=== PATIENT | female | born 1995 | race Caucasian/White ===

== ENCOUNTER 2020-12-21 18:15 | Emergency (ER) | payer OTHER, SELFPAY ==
--- NOTE | ~2020-12-21 | XR_ITS ---
EXAMINATION: XR CHEST CLINICAL INFORMATION: Tachycardia COMPARISON: None TECHNIQUE: Frontal view of the chest was obtained. FINDINGS: Lungs are mildly hypoinflated and grossly clear. Trachea is midline in position. No interstitial disease, consolidation or mass. No pulmonary edema, pleural effusion or pneumothorax. Cardiac silhouette and pulmonary vessels are normal in size. The mediastinum and giacomo have normal contour. The visualized bones, and upper abdomen, are unremarkable. XR/XR chest 1V IMPRESSION: No acute cardiopulmonary abnormality.
[2020-12-21 18:37] VITALS: BP 193/127; PULSE 101; RESP 18; TEMP 36.8; O2SAT 99; BMI 50.5
--- NOTE | 2020-12-21 18:43 | ECG_ITS ---
Test Reason : HYPERTENSION Blood Pressure : / mmHG Vent. Rate : 102 BPM Atrial Rate : 102 BPM P-R Int : 134 ms QRS Dur : 088 ms QT Int : 338 ms P-R-T Axes : 032 050 -02 degrees QTc Int : 440 ms Sinus tachycardia Nonspecific T wave abnormality Abnormal ECG No previous ECGs available Referred By: Generic ED Physician Electronically Signed By:ABNER LOPEZ MD
[2020-12-21 19:01] LABS: Basophils Percent Auto 0.3 % (0-2); Eosinophils Absolute Auto 0.1 X10*3/uL (0.0-0.4); Eosinophils Percent Auto 1.1 % (0-4); Hematocrit 38.9 % (37-47); Hemoglobin 13.4 g/dl (12.0-16.0); Imm Gran Abs Auto 0.02 X10*3/uL (0.00-0.03); Imm Gran Pct Auto 0.2 % (0.0-0.4); Lymphocytes Absolute Auto 2.5 X10*3/uL (1.2-4.9); Lymphocytes Percent Auto 25.5 % (20-40); MANUAL DIFF FLAG NO; Mean Corpuscular HGB Conc 34.4 g/dl (31.0-35.0); Mean Corpuscular Hemoglobin 29.2 pg (27.0-33.0); Mean Corpuscular Volume 84.7 fL (80-98); Mean Platelet Volume 10.2 fL (9.4-12.3); Monocytes Absolute Auto 0.5 X10*3/uL (0.1-1.2); Monocytes Percent Auto 4.5 % (2-11); Neutrophils Absolute Auto 6.8 X10*3/uL (2.0-8.3); Neutrophils Percent Auto 68.4 % (45-73); Platelet Count 273 X10*3/uL (160-400); Red Blood Count 4.59 X10*6/uL (4.20-5.50); Red Cell Distribution Width 13.2 % (11.0-16.0); White Blood Count 9.9 X10*3/uL (4.8-10.8)
[2020-12-21 19:21] LABS: Anion Gap 13 (12-20); Blood Urea Nitrogen 11 mg/dL (9-16); Calcium 9.4 mg/dL (8.4-10.2); Carbon Dioxide 24 mmol/L (22-29); Chloride 106 mmol/L (96-108); Estimated Glomerular Filt Rate > 60; Glucose Random 91 mg/dL (60-115); Potassium 3.9 mmol/L (3.3-5.1); Sodium 139 mmol/L (135-145)
[2020-12-21 19:28] LABS: Troponin-I High Sensitivity < 3.5 ng/L (<3.5-17.0)
--- NOTE | 2020-12-21 22:47 | ED.GENADULT ---
HPI - General Adult General Chief complaint: General Medical Stated complaint: High BP, PT came with EKG results Time Seen by Provider: 12/21/20 22:30 Source: patient Mode of arrival: ambulatory History of Present Illness HPI narrative: 25-year-old female with no significant past medical history presenting to the ED complaining of tachycardia and e;evated blood pressure S/P feeling palpitations work this afternoon. Reports started having palpitations and HR was 126, and BP was 180s/120s. Patient denies headache, lightheadedness, dizziness, CP, SOB, abdominal pain, nausea, vomiting, weakness, numbness, tingling, recent travel, history of blood clots, LE edema, illicit drug use, cigarette smoking, oral OCPs Onset (ago): hour(s) Related Data Previous Rx's Medication Instructions Recorded amlodipine 10 mg tablet 10 mg PO DAILY #14 tab 12/22/20 Allergies Allergy/AdvReac Type Severity Reaction Status Date / Time No Known Allergies Allergy Verified 12/21/20 18:36 Review of Systems Review of Systems: Constitutional: No Fever, No Chills, No Fatigue, No Malaise ENT/Mouth: No Ear Pain, No Nasal Congestion, No sore throat, No Rhinorrhea Eyes: No Eye Pain, No Swelling, No Redness, No Vision Changes Cardiovascular: No Chest Pain, No SOB, No Dyspnea on Exertion, No Edema, + Palpitations Respiratory: No Cough, No Smoke Exposure, No Dyspnea Gastrointestinal: No Nausea, No Vomiting, No Diarrhea, No Constipation, No Abdominal pain Genitourinary: No Dysuria, No Urinary Frequency, No Hematuria, No Flank Pain, No Urinary Flow Changes Musculoskeletal: No joint pain, No Myalgias, No Joint Swelling Skin: No Skin Lesions, No rash Neuro: No Weakness, No Numbness, No Paresthesias, No Dizziness, No Headache Yes all other systems are reviewed and are negative [facility] Past Medical History Attestation statement: The following information was validated with the patient. Medical History (Updated 12/22/20 @ 00:32 by JACOBO Maldonado) No pertinent past medical history Social History Social History Advance Directives: No Patient : No Physical Exam Vital Signs: Vital Signs: Last Vital Signs Temp 98.3 F 12/21/20 18:37 Pulse 95 12/21/20 23:19 Resp 24 H 12/21/20 23:19 BP 154/103 H 12/22/20 00:00 Pulse Ox 99 12/21/20 23:19 Body Mass Index 50.5 Const: General: cooperative, healthy appearing and no acute distress Orientation/consciousness: patient oriented x3 Limitations: no limitations HENMT: Head: Yes normal to inspection and Yes atraumatic Ears: hearing grossly normal bilaterally General nose exam: Normal external nose present Face and sinus: Yes normal facial exam Eyes: General: appearance normal, both eyes and all related structures Pupils: Equal, round and reactive pupils present EOM: EOMs intact bilaterally Neck: Neck: Yes normal visual inspection and Yes no meningeal signs Resp: Effort & Inspection: normal respiratory effort Auscultation: clear to auscultation bilaterally, no rales, no rhonchi and no wheezes Cardio: Rate: regular rate and tachycardic Heart sounds: S1 normal heart sound present and S2 normal heart sound present GI: Inspection: Yes normal to inspection Palpation (GI): Soft to palpation, nontender, no guarding and not rigid Skin: Rashes: no rashes Wounds: no wounds Neuro: General: patient oriented x3, tone normal, moves all extremities and no meningeal signs Cranial nerves: Yes Equal, round and reactive pupils present Gait exam (Neuro): Normal gait present Extrem: General: Yes normal to inspection, Yes no pedal edema and Yes no calf tenderness Course Course Course Narrative: -no leukocytosis. D-dimer negative. Labs otherwise unremarkable including TSH and troponin XR chest 1V IMPRESSION: No acute cardiopulmonary abnormality. ? -0031--patient's blood pressure improved to 154/103 after 10 mg of p.o. Amlodipine. Will DC home with 2 weeks worth of this dose and close PCP follow-up in the next 24-48 hours Medical Decision Making [facility] Narrative Medical decision making narrative: 25-year-old female with no significant past medical history presenting to the ED complaining of tachycardia and e;evated blood pressure S/P feeling palpitations work this afternoon. On exam hypertensive, tachycardic, NAD, nontoxic appearing. Concern for undiagnosed hypertension vs metabolic or infectious etiology vs ?PE. Low concern for hypertensive urgency/emergency as patient is asymptomatic in this regard Plan: EKG, labs, CXR, UA, PO Amlodipine, reassess Lab Data Result diagrams: 12/21/20 18:54 12/21/20 18:54 Labs: Lab Results 12/21/20 12/21/20 12/21/20 Range/Units 18:54 18:54 18:54 WBC 9.9 (4.8-10.8) X10*3/uL RBC 4.59 (4.20-5.50) X10*6/uL Hgb 13.4 (12.0-16.0) g/dl Hct 38.9 (37-47) % MCV 84.7 (80-98) fL MCH 29.2 (27.0-33.0) pg MCHC 34.4 (31.0-35.0) g/dl RDW 13.2 (11.0-16.0) % Plt Count 273 (160-400) X10*3/uL MPV 10.2 (9.4-12.3) fL Immature Gran % (Auto) 0.2 (0.0-0.4) % Neut % (Auto) 68.4 (45-73) % Lymph % (Auto) 25.5 (20-40) % [place] % (Auto) 4.5 (2-11) % Eos % (Auto) 1.1 (0-4) % Baso % (Auto) 0.3 (0-2) % Lymph # (Auto) 2.5 (1.2-4.9) X10*3/uL [place] # (Auto) 0.5 (0.1-1.2) X10*3/uL Eos # (Auto) 0.1 (0.0-0.4) X10*3/uL Baso # (Auto) 0.0 (0.0-0.2) X10*3/uL Abs Immat Gran (auto) 0.02 (0.00-0.03) X10*3/uL Absolute Neuts (auto) 6.8 (2.0-8.3) X10*3/uL Absolute Nucleated RBC 0.000 (0.0-0.012) X10*3/uL Nucleated RBC % (auto) 0.0 (0.0-0.2) /100WBC D-Dimer NG/ML Sodium 139 (135-145) mmol/L Potassium 3.9 (3.3-5.1) mmol/L Chloride 106 (96-108) mmol/L Carbon Dioxide 24 (22-29) mmol/L Anion Gap 13 (12-20) BUN 11 (9-16) mg/dL Creatinine 0.88 (0.5-1.4) mg/dL Estim Creat Clear Calc 126.0 Estimated GFR > 60 Random Glucose 91 (60-115) mg/dL Calcium 9.4 (8.4-10.2) mg/dL Magnesium 2.1 (1.6-2.6) mg/dL Total Bilirubin 0.2 (0.0-1.0) mg/dL Direct Bilirubin 0.2 (0.0-0.5) mg/dL AST 17 (5-31) U/L ALT 20 (0-31) U/L Alkaline Phosphatase 58 (39-117) U/L Troponin I High Sens < 3.5 (<3.5-17.0) ng/L Total Protein 7.9 (6.5-8.0) g/dL Albumin 4.5 (3.5-5.0) g/dL TSH 2.07 (0.32-4.0) uIU/mL 12/21/20 Range/Units 23:19 WBC (4.8-10.8) X10*3/uL RBC (4.20-5.50) X10*6/uL Hgb (12.0-16.0) g/dl Hct (37-47) % MCV (80-98) fL MCH (27.0-33.0) pg MCHC (31.0-35.0) g/dl RDW (11.0-16.0) % Plt Count (160-400) X10*3/uL MPV (9.4-12.3) fL Immature Gran % (Auto) (0.0-0.4) % Neut % (Auto) (45-73) % Lymph % (Auto) (20-40) % [place] % (Auto) (2-11) % Eos % (Auto) (0-4) % Baso % (Auto) (0-2) % Lymph # (Auto) (1.2-4.9) X10*3/uL [place] # (Auto) (0.1-1.2) X10*3/uL Eos # (Auto) (0.0-0.4) X10*3/uL Baso # (Auto) (0.0-0.2) X10*3/uL Abs Immat Gran (auto) (0.00-0.03) X10*3/uL Absolute Neuts (auto) (2.0-8.3) X10*3/uL Absolute Nucleated RBC (0.0-0.012) X10*3/uL Nucleated RBC % (auto) (0.0-0.2) /100WBC D-Dimer < 200 NG/ML Sodium (135-145) mmol/L Potassium (3.3-5.1) mmol/L Chloride (96-108) mmol/L Carbon Dioxide (22-29) mmol/L Anion Gap (12-20) BUN (9-16) mg/dL Creatinine (0.5-1.4) mg/dL Estim Creat Clear Calc Estimated GFR Random Glucose (60-115) mg/dL Calcium (8.4-10.2) mg/dL Magnesium (1.6-2.6) mg/dL Total Bilirubin (0.0-1.0) mg/dL Direct Bilirubin (0.0-0.5) mg/dL AST (5-31) U/L ALT (0-31) U/L Alkaline Phosphatase (39-117) U/L Troponin I High Sens (<3.5-17.0) ng/L Total Protein (6.5-8.0) g/dL Albumin (3.5-5.0) g/dL TSH (0.32-4.0) uIU/mL ECG Data Attestation: I personally reviewed and interpreted this ECG as follows: Prior ECG tracings: not available for review Interpretation: EKG sinus tachycardia rate of 102 WI interval 134 QTC 440 T-wave inversions in lead 3 no STEMI Discharge Plan Discharge Clinical Impression: Hypertension Qualifiers: Hypertension type: unspecified Qualified Code(s): I10 - Essential (primary) hypertension Patient Disposition: Home, Self-Care Instructions: Hypertension (ED), DASH Eating Plan (ED) Additional Instructions: Your blood work was reassuring today in the ED Your x-ray was negative Your blood pressure was extremely elevated as well as your heart rate This is dangerous Similar pain is in antihypertensive/blood pressure medication, take as prescribed It is important for you to follow-up with a primary care doctor for repeat blood pressure testing/monitoring and 24-48 hours Having elevated blood pressure on treated with you at high risk for stroke and heart attacks If her symptoms persist or worsen, he develops chest pain, shortness breath, headache, lightheadedness or dizziness return to the ED immediately Prescriptions: New amlodipine 10 mg tablet 10 mg PO DAILY Qty: 14 RF: 0 Referrals: Physician,Unknown J [Primary Care Provider] - 2 days (For blood pressure recheck)
[2020-12-21 23:05] LABS: Alanine Aminotransferase 20 U/L (0-31); Albumin Level 4.5 g/dL (3.5-5.0); Alkaline Phosphatase 58 U/L (39-117); Aspartate Amino Transferase 17 U/L (5-31); Bilirubin Direct 0.2 mg/dL (0.0-0.5); Bilirubin Total 0.2 mg/dL (0.0-1.0); Magnesium 2.1 mg/dL (1.6-2.6); Total Protein 7.9 g/dL (6.5-8.0)
[2020-12-21 23:19] VITALS: BP 172/106; PULSE 95; RESP 24; O2SAT 99
[2020-12-21] MEDS: amLODIPine Besylate 10 MG TABLET PO (23:21)
[2020-12-21 23:30] LABS: TSH reflex Free T4 2.07 uIU/mL (0.32-4.0)
[2020-12-21 23:34] LABS: D Dimer < 200 NG/ML
[2020-12-22] VITALS: BP 154/103
== END 2020-12-22 01:18 | disposition home or self-care (01) ==
PROVIDERS: Physician Assistant; Emergency Provider Emergency Medicine Emergency Medical Services
DX: R00.0 Tachycardia, unspecified (principal); R00.2 Palpitations; I10 Essential (primary) hypertension; Z79.899 Other long term (current) drug therapy
CPT/HCPCS: 36415; 71045; 80048; 80076; 83735; 84443; 84484; 85025; 85379; 93005; 99284

== ENCOUNTER 2021-04-28 07:59 | Outpatient (REF) | payer OTHER, SELFPAY ==
[2021-04-28 11:54] LABS: Anion Gap 12 (12-20); Blood Urea Nitrogen 7 mg/dL (9-16); Calcium 9.4 mg/dL (8.4-10.2); Carbon Dioxide 27 mmol/L (22-29); Chloride 104 mmol/L (96-108); Cholesterol 185 mg/dL; Estimated Glomerular Filt Rate > 60; Glucose Fasting 91 mg/dL (60-99); HDL Cholesterol 43 mg/dL; LDL Cholesterol Calculated 124 mg/dl; Potassium 4.3 mmol/L (3.3-5.1); Sodium 139 mmol/L (135-145); Triglycerides 94 mg/dL
[2021-04-28 11:58] LABS: Vitamin D 25-OH Total 13.5 ng/mL (>30)
== END 2021-04-28 08:00 | disposition home or self-care (01) ==
LOC: HO.HMGCLDS 07:59
PROVIDERS: PCP Internal Medicine; Visit Provider Internal Medicine
DX: I10 Essential (primary) hypertension (principal)
CPT/HCPCS: 36415; 80048; 80061; 82306

== ENCOUNTER 2023-05-05 11:29 | Outpatient (REF) | payer OTHER, SELFPAY ==
[2023-05-05 14:08] LABS: Alanine Aminotransferase 7 U/L (0-31); Anion Gap 13 (12-20); Aspartate Amino Transferase 11 U/L (5-31); Blood Urea Nitrogen 13 mg/dL (9-16); Calcium 9.4 mg/dL (8.4-10.2); Carbon Dioxide 26 mmol/L (22-29); Chloride 105 mmol/L (96-108); Cholesterol 189 mg/dL (<200); Estimated Glomerular Filt Rate > 60; Glucose Fasting 83 mg/dL (60-99); HDL Cholesterol 62 mg/dL (>40); LDL Cholesterol Calculated 119 mg/dL (<100); Potassium 4.2 mmol/L (3.3-5.1); Sodium 140 mmol/L (135-145); Triglycerides 44 mg/dL (<150)
[2023-05-05 14:26] LABS: Vitamin D 25-OH Total 81.8 ng/mL (>30)
== END 2023-05-05 11:30 | disposition home or self-care (01) ==
LOC: HO.HMGCLDS 11:29
PROVIDERS: PCP Internal Medicine; Visit Provider Internal Medicine
DX: Z00.01 Encounter for general adult medical examination with abnormal findings (principal); E66.9 Obesity, unspecified; E55.9 Vitamin D deficiency, unspecified; I10 Essential (primary) hypertension
CPT/HCPCS: 36415; 80048; 80061; 82306; 84450; 84460

== ENCOUNTER 2023-05-16 10:47 | Outpatient (AMB) | payer OTHER, MEDICAID, SELFPAY ==
--- NOTE | 2023-05-16 11:35 | A.OFFPC_ITS ---
Vital Signs 05/16/23 11:41 Height 5 ft 3 in Weight 163 lb BMI 28.9 BP 118/78 Blood Pressure Location Lt brachial Position Sitting Pulse 91 Pulse Source Pulse Oximeter Pulse Oximetry (%) 98 Oxygen Delivery Method Room Air Intake Visit Reasons: Annual PE Intake Note: Pt is here today for her Annual Physical. Hasn't had a Pap smear Allergies No Known Allergies Allergy (Verified 05/16/23 12:04) Medication List - Last Reconciled 05/16/23 by Anisha Estevez MD amlodipine 5 mg PO DAILY lisinopril 5 mg PO DAILY Tobacco use date assessed: 05/16/23 Dental Screening Dental Screen Date: 05/16/23 Did you have a dental visit in the last 12 months?: Yes Did you have a dental problem in the last 6 months where you did not have access to dental care?: No Was dental information given to patient?: Patient has dentist HPI Annual PE HPI Details 28-year-old lady here today for physical exam. She has obesity, has hypertension currently stable and controlled on amlodipine and lisinopril has been feeling well, with no complaints at present time, has started a new regimen of exercise, and has been trying to adhere to healthy eating habits. Patient declines getting cervical cancer screening or pelvic exam on this visit. [facility] Medical History (Updated 05/17/23 @ 01:17 by Anisha Estevez MD) Anxiety and depression Essential hypertension Surgical History (Updated 05/16/23 @ 12:07 by Anisha Estevez MD) No pertinent past surgical history Family History Father Substance use disorder Mental health disorder Myocardial infarction, Onset Age: 59 Mother Diabetes mellitus Rheumatoid arthritis Mental health disorder Sister Mental health disorder Maternal Grandmother No problems noted. Social History Housing: Apartment Patient Tobacco Use Status: Never used Tobacco e-Cigarette/Vaping Use: Never Used service: No Current occupational status: employed Cognitive needs: No Hearing needs: No Vision needs: No Questionnaire PHQ-9 Over the last 2 weeks, how often have you been bothered by any of the following problems? 1. Little interest or pleasure in doing things: not at all 2. Feeling down, depressed, or hopeless: not at all 3. Trouble falling or staying asleep, or sleeping too much: not at all 4. Feeling tired or having little energy: not at all 5. Poor appetite or overeating: not at all 6. Feeling bad about yourself - or that you are a failure or have let yourself or your family down: not at all 7. Trouble concentrating on things, such as reading the newspaper or watching television: not at all 8. Moving or speaking so slowly that other people could have noticed. Or the opposite - being so fidgety or restless that you have been moving around a lot more than usual: not at all 9. Thoughts that you would be better off or of hurting yourself in some way: not at all Total score: 0 Depression Screening Interpretation: Negative Depression Screening Done: Yes 60693 - PHQ-9 Billing: Yes Source: Developed by Drs. Tyson Bacon, Latrice Ivan, David Calle and colleagues, with an educational diane from [employer]. Thrive Questionnaire Date Thrive assessed: 05/16/23 I am a: Patient What is your living situation today?: I have a steady place to live Within the past 12 months, did the food you bought not last and you didn't have the money to get more?: Never true Within the past 12 months, did you worry whether your food would run out before you got money to buy more?: Never true Do you have trouble paying for medicines?: No Do you have trouble getting transportation to medical appointments?: No Do you have trouble paying your heating and electricity bill?: No Do you have trouble taking care of your child, family member or friend?: No Do you have trouble with day-to-day activities such as bathing, preparing meals, shopping, managing finances, etc.?: No Are you currently unemployed and looking for a job?: No Are you interested in more education?: No Please select the resources that you would like help with: None THRIVE Score: 0 AUDIT C Alcohol Use Questionnaire (AUDIT-C) 1. How often do you have a drink containing alcohol?: Never 3. How often do you have six or more drinks on one occasion?: Never Total Score: 0 Score Reviewed/Action Taken: Yes FLORENCIO-7 AMB Questionnaire FLORENCIO-7 Date FLORENCIO - 7 assessed: 05/16/23 Feeling nervous, anxious, or on edge: 1 = Several days Not being able to stop or control worryin = Not at all Worrying too much about different things: 1 = Several days Trouble relaxin = Not at all Being so restless that it is hard to sit still: 0 = Not at all Becoming easily annoyed or irritable: 0 = Not at all Feeling afraid as if something awful might happen: 0 = Not at all Total FLORENCIO-7 score (0-4 normal; 5-9 mild; 10-14 moderate; 15-21 severe): 2 Source: Developed by Drs. Tyson Bacon, Latrice Ivan, David Calle and colleagues, with an educational diane from [employer]. FLORENCIO-7 Assessment Billing FLORENCIO-7 Assessment Tool: FLORENCIO-7 Assessment 86296 Review of Systems Const Denies headache(s) and Denies weakness Eyes Denies change in vision ENT Denies dizziness and Denies headache(s) Card Denies chest pain, Denies lightheadedness and Denies dyspnea Resp Denies chest congestion, Denies cough and Denies dyspnea GI Denies abdominal pain, Denies change in bowel habits and Denies heartburn Reports no additional complaints Musc Reports no additional complaints Skin/Breast Denies lesions and Denies rash Neuro Denies dizziness, Denies headache(s) and Denies weakness Psych Reports no additional complaints Endo Reports no additional complaints Andrea/Lymph Reports no additional complaints Aller/Immun Reports no additional complaints Physical exam (Primary Care) Vital Signs: Last Vital Signs Pulse 91 05/16/23 11:41 BP 118/78 05/16/23 11:41 Pulse Ox 98 05/16/23 11:41 Oxygen Delivery Method Room Air 05/16/23 11:41 BMI result Body Mass Index 28.9 BMI Assessment/Plan discussion: High BMI High, discussed plan: weight reduction, dietary and physical activity Tobacco/Smoking Status: Tobacco use Status Tobacco use date assessed 05/16/23 05/16/23 11:43 Patient Tobacco Use Status Never used Tobacco 05/16/23 11:38 e-Cigarette/Vaping Use Never Used 05/16/23 11:38 Depression Screening Interpretation: Negative Thrive Assessment: Date of Thrive Assessment Date Thrive assessed 05/12/22 05/16/23 11:38 Const Other: Alert oriented x3, no acute cardio respiratory distress, ambulatory normal gait Orientation/consciousness: patient oriented x3 HENMT Face and sinus: Yes face symmetric Mouth: Normal oral and palatal mucosa present, oropharynx normal and moist mucous membranes Neck Other: Supple, no lymphadenopathy, thyroid gland nonpalpable Resp Auscultation: clear to auscultation bilaterally Cardio Other: S1-S2 present regular rate and rhythm, no murmurs GI Other: Normal bowel sounds, soft, nontender, with no mass palpated Other: not done referred to OB for her initial pap /pelvic exam General: Yes no CVA tenderness Back/Spine/Pelvis Back: no CVA tenderness and No back tenderness Skin General skin exam: no rashes or lesions noted Neuro General: patient oriented x3, gait normal, moves all extremities, Normal light touch and pain sensation, no focal motor deficits and CN's II-XI intact bilaterally Extrem General: Yes full ROM, Yes no joint enlargement, Yes no clubbing, cyanosis or edema, Yes no calf tenderness and Yes normal gait Psych Appearance: grossly normal and well kempt Mental Status: mental status grossly normal Speech and movement: Normal speech and movement present Affect: normal affect Attitude: cooperative Thought process: Normal thought process present Results Reviewed Results Reviewed: Name: Tonya Franco Age/Sex: 28/F : 1995 Unit#: [id number] Attend Dr: nAisha Estevez MD Re05/05/23 Status: DEP REF Location: [facility] Disch: SPEC : [id number] ROBYN: 05/05/23 STATUS: COMP REQ : [id number] RECD: 05/05/[address]: Anisha Estevez MD COMP: 05/05/23-142 ENTERED: 05/05/23-[address]: ORDERED: Met Prof Fast, AST, ALT, Lipid Panel, Vitamin D 25-OH Test Result Flag Reference Sodium 140 135-145 mmol/L Potassium 4.2 3.3-5.1 mmol/L CL 105 96-108 mmol/L CO2 26 22-29 mmol/L Gap 13 12-20 BUN 13 9-16 mg/dL Creat 0.80 0.5-1.4 mg/dL EGFR > 60 NOTE: For -Citizen Of [place] individuals, multiply the result by 1.210. Chronic Kidney Disease: Estimated GFR < 60 mL/min/1.73m2 Severe Kidney Disease: Estimated GFR < 15 mL/min/1.73m2 FBS 83 60-99 mg/dL CA 9.4 8.4-10.2 mg/dL AST (GOT) 11 5-31 U/L ALT (GPT) 7 0-31 U/L Triglyceride 44 <150 mg/dL Desirable Triglyceride: less than 150 mg/dL Borderline High Triglyceride 150-199 mg/dL High Triglyceride: 200-499 mg/dL Very High Triglyceride: greater than or equal to 5OO mg/dL Cholesterol 189 <200 mg/dL Desirable Cholesterol: less than 200 mg/dL Borderline High Cholesterol: 200-239 mg/dL High Cholesterol: greater than 239 mg/dL LDL Calculated 119 H <100 mg/dL Desirable LDL: less than 100 mg/dL Near Optimal/Above Optimal LDL: 110-129 mg/dL Borderline High LDL: 130-159 mg/dL High LDL: 160-189 mg/dL Very High LDL: greater than or equal to 190 mg/dL HDL 62 >40 mg/dL Desirable HDL: greater than 40 mg/dL Note: This HDL assay may give artificially low results in patients with liver disease. Vit D 25-OH Tot 81.8 >30 ng/mL Health Based Reference Values* < 20 ng/mL Deficient 20-30 ng/mL Insufficient > 30 ng/mL Sufficient Assessment and Plan Assessment & Plan (1) Annual visit for general adult medical examination with abnormal findings: Code(s): Z00.01 - Encounter for general adult medical examination with abnormal findings Plan: Reviewed recent fasting lab results with patient Recommended dental visit every 6 months and regular eye exams, at least every 2 years. Take adequate calcium in diet and vitamin-D 3 at 2000 IU per cap once a day, in addition to weight- bearing exercises to help maintain good muscle tone and weight control. Instructed to do self-breast exam, and recommended to get yearly mammogram, starting at age 40. Up-to-date with all her vaccines, patient states that she had received her tetanus shot less than 10 years ago. Advised to get her cervical cancer screening and pelvic exam done patient states that she only own appointment when ready (2) Essential hypertension: Code(s): I10 - Essential (primary) hypertension Plan: Blood pressure at goal of less than 130/80. Continue with current medication. Reinforced importance of following a low sodium diet, getting regular exercise, and lowering stress levels. Medications: Refilled amlodipine 5 mg PO DAILY 90 tabs 4RF lisinopril 5 mg PO DAILY 90 tabs 4RF I10 - Essential (primary) hypertension Coding Level of Care Code Est Pt Prev Care 18-39y(78759) Diagnoses Annual visit for general adult medical examination with abnormal findings Z00.01 Essential hypertension I10 Additional Codes FLORENCIO-7 Assessment Billing - FLORENCIO-7 Assessment Tool: FLORENCIO-7 Assessment 59239 ([id number])
[2023-05-16 11:41] VITALS: BP 118/78; PULSE 91; O2SAT 98; BMI 28.9
== END 2023-05-16 12:46 | disposition home or self-care (01) ==
PROVIDERS: PCP Internal Medicine; Visit Provider Internal Medicine
DX: Z00.00 Encounter for general adult medical examination without abnormal findings (principal); I10 Essential (primary) hypertension
CPT/HCPCS: 99395

== ENCOUNTER 2024-05-19 08:24 | Outpatient (AMB) | payer OTHER, SELFPAY ==
--- NOTE | 2024-05-19 08:35 | MHC.PC.OV ---
Vital Signs 05/19/24 08:57 Height 5 ft 3 in Weight 242 lb BMI 42.9 BP 120/78 Blood Pressure Location Rt brachial Position Sitting Respiration 14 Pulse 72 Pulse Source Pulse Oximeter Pulse Oximetry (%) 99 Oxygen Delivery Method Room Air Intake Visit Reasons: Annual PE Intake Note: Pt is here today for her PE: pt is on a wait list for a papsmear at [facility] (she never had a pap, not sexually active) Is last menstrual period known: Yes Last menstrual period: 04/27/24 Allergies No Known Allergies Allergy (Verified 05/19/24 09:09) Medication List - Last Reconciled 05/19/24 by Anisha Estevez MD amlodipine 5 mg PO DAILY lisinopril 5 mg PO DAILY Tobacco use date assessed: 05/19/24 Dental Screening Dental Screen Date: 05/19/24 Did you have a dental visit in the last 12 months?: Yes Did you have a dental problem in the last 6 months where you did not have access to dental care?: No Was dental information given to patient?: Patient has dentist HPI Annual PE HPI Details 29-year-old lady with past medical history significant for hypertension currently on amlodipine and lisinopril, here today for her physical exam. She is currently on the wait list at [facility] for cervical cancer screening and. Patient has never had a pap smear, not sexually active. Her blood pressure is stable and controlled on present treatment. Has a nodular lesion on right cheek just below her eye, which she states interferes with her lateral vision. Requesting to see a convention worker to have lesion removed [facility] Medical History (Updated 05/19/24 @ 09:50 by Anisha Estevez MD) History of depression Morbid obesity with BMI of 40.0-44.9, adult Essential hypertension Surgical History No pertinent past surgical history Family History Father Substance use disorder Mental health disorder Myocardial infarction, Onset Age: 59 Mother Diabetes mellitus Rheumatoid arthritis Mental health disorder Sister Mental health disorder Maternal Grandmother No problems noted. Social History Housing: Apartment Patient Tobacco Use Status: Never used Tobacco e-Cigarette/Vaping Use: Never Used service: No Current occupational status: employed Cognitive needs: No Hearing needs: No Vision needs: No Female Reproductive History Menstrual Date of last menstrual period: 04/27/24 Other: Waiting for an appointment with [facility] to have her initial cervical cancer screening and pelvic exam. Questionnaire PHQ-9 Over the last 2 weeks, how often have you been bothered by any of the following problems? 1. Little interest or pleasure in doing things: not at all 2. Feeling down, depressed, or hopeless: not at all 3. Trouble falling or staying asleep, or sleeping too much: not at all 4. Feeling tired or having little energy: not at all 5. Poor appetite or overeating: not at all 6. Feeling bad about yourself - or that you are a failure or have let yourself or your family down: not at all 7. Trouble concentrating on things, such as reading the newspaper or watching television: not at all 8. Moving or speaking so slowly that other people could have noticed. Or the opposite - being so fidgety or restless that you have been moving around a lot more than usual: not at all 9. Thoughts that you would be better off or of hurting yourself in some way: not at all Total score: 0 Depression Screening Interpretation: Negative Depression Screening Done: Yes 22072 - PHQ-9 Billing: Yes Source: Developed by Drs. Tyson Bacon, Latrice Ivan, David Calle and colleagues, with an educational diane from [employer]. Thrive Questionnaire Date Thrive assessed: 05/12/24 I am a: Patient What is your living situation today?: I have a steady place to live Within the past 12 months, did the food you bought not last and you didn't have the money to get more?: Never true Within the past 12 months, did you worry whether your food would run out before you got money to buy more?: Never true Do you have trouble paying for medicines?: No Do you have trouble getting transportation to medical appointments?: No Do you have trouble paying your heating and electricity bill?: No Do you have trouble taking care of your child, family member or friend?: No Do you have trouble with day-to-day activities such as bathing, preparing meals, shopping, managing finances, etc.?: No Are you currently unemployed and looking for a job?: No Are you interested in more education?: No Please select the resources that you would like help with: None Currently or been in a relationship where the following occur: No concerns reported THRIVE Score: 0 AUDIT C Alcohol Use Questionnaire (AUDIT-C) 1. How often do you have a drink containing alcohol?: 2-4 times a month 2. How many drinks containing alcohol do you have on a typical day when you are drinking?: 1 or 2 3. How often do you have six or more drinks on one occasion?: Never Total Score: 2 FLORENCIO-7 AMB Questionnaire FLORENCIO-7 Date FLORENCIO - 7 assessed: 05/19/24 Feeling nervous, anxious, or on edge: 0 = Not at all Not being able to stop or control worryin = Not at all Worrying too much about different things: 0 = Not at all Trouble relaxin = Not at all Being so restless that it is hard to sit still: 0 = Not at all Becoming easily annoyed or irritable: 0 = Not at all Feeling afraid as if something awful might happen: 0 = Not at all Total FLORENCIO-7 score (0-4 normal; 5-9 mild; 10-14 moderate; 15-21 severe): 0 Source: Developed by Drs. Tyson Bacon, Latrice Ivan, David Calle and colleagues, with an educational diane from [employer]. FLORENCIO-7 Assessment Billing FLORENCIO-7 Assessment Tool: FLORENCIO-7 Assessment 78491 Review of Systems Const Denies headache(s), Denies weakness and Reports weight gain Eyes Denies change in vision ENT Denies dizziness and Denies headache(s) Card Denies chest pain, Denies lightheadedness and Denies dyspnea Resp Denies chest congestion, Denies cough and Denies dyspnea GI Denies abdominal pain, Denies change in bowel habits and Denies heartburn Reports no additional complaints Musc Reports no additional complaints Skin/Breast Reports as per HPI and Denies rash Neuro Denies dizziness, Denies headache(s) and Denies weakness Psych Reports no additional complaints Endo Reports no additional complaints Andrea/Lymph Reports no additional complaints Aller/Immun Reports no additional complaints Physical exam (Primary Care) Vital Signs: Last Vital Signs Pulse 72 05/19/24 08:57 Resp 14 05/19/24 08:57 BP 120/78 05/19/24 08:57 Pulse Ox 99 05/19/24 08:57 Oxygen Delivery Method Room Air 05/19/24 08:57 BMI result Body Mass Index 42.9 BMI Assessment/Plan discussion: High BMI High, discussed plan: weight reduction, dietary and physical activity Tobacco/Smoking Status: Tobacco use Status Tobacco use date assessed 05/19/24 05/19/24 08:36 Patient Tobacco Use Status Never used Tobacco 05/19/24 08:36 e-Cigarette/Vaping Use Never Used 05/19/24 08:36 PHQ-9: PHQ-9 Score PHQ-9: Total score 0 05/19/24 09:11 Depression Screening Interpretation: Negative Thrive Assessment: Date of Thrive Assessment Date Thrive assessed 05/12/24 05/19/24 08:36 Currently or been in a relationship where the following occur: No concerns reported Const Other: Alert oriented x3, no acute cardio respiratory distress, ambulatory normal gait Orientation/consciousness: patient oriented x3 HENMT Face and sinus: Yes face symmetric Mouth: Normal oral and palatal mucosa present, oropharynx normal and moist mucous membranes Neck Other: Supple, no lymphadenopathy, thyroid gland nonpalpable Resp Auscultation: clear to auscultation bilaterally Cardio Other: S1-S2 present regular rate and rhythm, no murmurs GI Other: Normal bowel sounds, soft, nontender, with no mass palpated Other: not done referred to OB for her initial pap /pelvic exam General: Yes no CVA tenderness Back/Spine/Pelvis Back: no CVA tenderness and No back tenderness Skin Other: Nodular lesion on right maxillary area just below her right eye, nontender to palpation Neuro General: patient oriented x3, gait normal, moves all extremities, Normal light touch and pain sensation, no focal motor deficits and CN's II-XI intact bilaterally Extrem General: Yes full ROM, Yes no joint enlargement, Yes no clubbing, cyanosis or edema, Yes no calf tenderness and Yes normal gait Psych Appearance: grossly normal and well kempt Mental Status: mental status grossly normal Speech and movement: Normal speech and movement present Affect: normal affect Attitude: cooperative Thought process: Normal thought process present Coding Level of Care Code Est Pt Prev Care 18-39y([id number]) Diagnoses Essential hypertension I10 Morbid obesity with BMI of 40.0-44.9, adult E66.01; Z68.41 Advanced directives, counseling/discussion Z71.89 Annual visit for general adult medical examination with abnormal findings Z00. Lesion of skin of face L98.9 Additional Codes FLORENCIO-7 Assessment Billing - FLORENCIO-7 Assessment Tool: FLORENCIO-7 Assessment 36199 ([id number]) PHQ-9 - 70839 - PHQ-9 Billing: Yes ([id number]) Assessment & Plan Assessment & Plan (1) Essential hypertension: Code(s): I10 - Essential (primary) hypertension Category: Medical Plan: Blood pressure at goal of less than 130/80. Continue with current dose of amlodipine and lisinopril Reinforced importance of following a low sodium diet, getting regular exercise, and lowering stress levels. (2) Morbid obesity with BMI of 40.0-44.9, adult: Code(s): E66.01 - Morbid (severe) obesity due to excess calories; Z68.41 - Body mass index [BMI] 40.0-44.9, adult Category: Medical Plan: Dry following a Mediterranean diet, limit foods high in fat, sugar, and calories, eat slowly, pay attention to portion sizes, plan your meals ahead of time, start regular physical activity 150 minutes of moderate intensity exercise . Fasting basic metabolic panel ordered (3) Advanced directives, counseling/discussion: Code(s): Z71.89 - Other specified counseling Plan: Initiated the conversation about Advanced Directives. Advanced Directives help patients prepare for current and future decisions about their medical treatment and place of care. Discussed with patient that it is a process where a patients current condition and prognosis are reviewed, their wishes for information regarding their illness are elicited, and likely medical dilemmas are presented and options discussed. Healthcare proxy form completed today. The form can be amended as needed, reviewed yearly and make changes as needed (4) Annual visit for general adult medical examination with abnormal findings: Code(s): Z00.01 - Encounter for general adult medical examination with abnormal findings Plan: Will check appropriate labs. Recommended dental visit every 6 months and regular eye exams, at least every 2 years. Take adequate calcium in diet and vitamin-D 3 at 2000 IU per cap once a day, in addition to weight-bearing exercises to help maintain good muscle tone and weight control. Instructed to do self-breast exam, and recommended to get yearly mammogram, starting at age 40. Has been referred to OBGYN for her initial cervical screening pelvic exam. Advised to get her yearly flu shot and check with her vaccination record and see if she had a recent Tdap vaccine (5) Lesion of skin of face: Code(s): L98.9 - Disorder of the skin and subcutaneous tissue, unspecified Category: Medical Plan: Dermatology consult ordered Orders: Orders Hemoglobin and Hematocrit Today E66.01 - Morbid (severe) obesity due to excess calories, I10 - Essential (primary) hypertension, R42 - Dizziness and giddiness, Z68.41 - Body mass index [BMI] 40.0-44.9, adult Basic Metabolic Panel Fasting Today I10 - Essential (primary) hypertension Liver Panel Today E66.01 - Morbid (severe) obesity due to excess calories, I10 - Essential (primary) hypertension, R42 - Dizziness and giddiness, Z68.41 - Body mass index [BMI] 40.0-44.9, adult Vitamin D 25-OH Total Today E66.01 - Morbid (severe) obesity due to excess calories, I10 - Essential (primary) hypertension, R42 - Dizziness and giddiness, Z68.41 - Body mass index [BMI] 40.0-44.9, adult Referrals Dermatology Referral L98.9 - Disorder of the skin and subcutaneous tissue, unspecified
[2024-05-19 08:57] VITALS: BP 120/78; PULSE 72; RESP 14; O2SAT 99; BMI 42.9
== END 2024-05-19 09:24 | disposition home or self-care (01) ==
PROVIDERS: PCP Internal Medicine; Visit Provider Internal Medicine
DX: I10 Essential (primary) hypertension (principal); E66.01 Morbid (severe) obesity due to excess calories; Z68.41 Body mass index [BMI] 40.0-44.9, adult; Z71.89 Other specified counseling; Z00.01 Encounter for general adult medical examination with abnormal findings; L98.9 Disorder of the skin and subcutaneous tissue, unspecified

== ENCOUNTER → 2024-05-19 08:24 | Outpatient (BNVA) | payer OTHER, SELFPAY | PROVIDERS: PCP Internal Medicine; Visit Provider Internal Medicine | DX: Z00.01 Encounter for general adult medical examination with abnormal findings (principal); I10 Essential (primary) hypertension; L98.9 Disorder of the skin and subcutaneous tissue, unspecified; E66.01 Morbid (severe) obesity due to excess calories; Z71.89 Other specified counseling; Z68.41 Body mass index [BMI] 40.0-44.9, adult; Z79.899 Other long term (current) drug therapy | CPT/HCPCS: 96127 ==

== ENCOUNTER 2024-12-10 07:45 | Inpatient (IN) | payer OTHER, SELFPAY ==
[2024-12-10] VITALS (8 sets, daily range): BP systolic 120–140; BP diastolic 80–101; PULSE 53–97; RESP 14–18; TEMP 36.3–37.1; O2SAT 98–100; BMI 43.6
--- NOTE | ~2024-12-10 | CT_ITS ---
EXAMINATION: CT ABDOMEN AND PELVIS WITH CONTRAST CLINICAL INFORMATION: Right upper quadrant abdominal pain. Rule out CBD obstruction. COMPARISON: No prior CT. Correlation made with abdomen US to the earlier same day. TECHNIQUE: Multidetector volumetric images were obtained from the superior aspect of the liver through the pubic symphysis following administration 85 mL of Omnipaque 350 intravenous contrast. Sagittal and coronal reformatted images were obtained on the technologist's workstation. Oral contrast: No This CT examination was performed using dose optimization techniques as appropriate, variously including the following: *Automated exposure control *Adjustment of mA and/or kV according to patient size (this includes techniques or standardized protocols for targeted exams where dose is matched to indication/reason for exam; i.e. extremities or head) *Use of iterative reconstruction technique FINDINGS: LUNG BASES: The visualized lung bases are unremarkable. LIVER, GALLBLADDER, AND BILIARY TREE: The liver is normal in size, shape, and attenuation. No focal hepatic lesion or biliary ductal dilatation is present. Gallbladder is mildly distended. There is cholelithiasis. There is trace pericholecystic fluid present. There is trace pericholecystic inflammatory stranding. Findings are suspect for acute cholecystitis. PANCREAS: Unremarkable. SPLEEN: Unremarkable. ADRENAL GLANDS: Unremarkable. KIDNEYS AND URETERS: The kidneys are normal in size, shape, and attenuation. No hydronephrosis, hydroureter, or calculi seen. No perinephric stranding. BLADDER: Distended. Normal. GASTROINTESTINAL TRACT: The stomach is somewhat decompressed. Duodenum is grossly normal. The small bowel is normal in caliber and course. No wall thickening or inflammation. Normal appendix is visualized. The colon is normal in course and caliber without wall thickening or inflammation. The rectum appears normal. ABDOMINAL WALL: No significant hernia is appreciated. LYMPH NODES: There is no abnormal lymphadenopathy present. VASCULAR: Unremarkable. PELVIC VISCERA: The uterus and adnexa are unremarkable. OSSEOUS STRUCTURES: No suspicious lytic or blastic bone lesions. CT/CT abdomen pelvis w IV con IMPRESSION: 1. There is no evidence of biliary obstruction. 2. There is cholelithiasis, with a tiny amount of pericholecystic fluid and trace pericholecystic inflammation. Findings are suspect for early acute cholecystitis. 3. Remainder of the examination is normal. Electronically signed by: Lamberto Baeza MD 12/10/2024 12:17 PM EDT RP
--- NOTE | ~2024-12-10 | US_ITS ---
EXAMINATION: US ABDOMEN LIMITED HISTORY: RUQ tenderness TECHNIQUE: Real-time grayscale ultrasound imaging of the right upper quadrant was performed and images were reviewed. COMPARISON: There are no prior studies available for comparison. FINDINGS: Liver: The right lobe of the liver measures 13.4 cm in size. The left lobe of the liver measures 9.5 cm in size. The liver demonstrates normal homogeneous echotexture. No focal mass or intrahepatic biliary ductal dilatation is identified. There is normal hepatopedal flow in the portal vein. Gallbladder and biliary tree: Numerous shadowing calculi are noted in the gallbladder. There is no wall thickening or pericholecystic fluid. There is no sonographic Ferrera sign. The common bile duct is normal in caliber measuring 3 mm. Right Kidney: The right kidney measures 11.1 cm in length. The right kidney is unremarkable, without evidence of masses, hydronephrosis, or calculi. Pancreas: The pancreatic head, neck, and body are unremarkable. The pancreatic tail is obscured by bowel gas. Abdominal aorta and inferior vena cava: The visualized portions of the abdominal aorta and inferior vena cava are normal in caliber. There is no free fluid in the right upper quadrant. US/US abdomen limited IMPRESSION: Cholelithiasis without evidence of acute cholecystitis. Electronically signed by: Tyson Parks MD 12/10/2024 10:49 AM EDT
[2024-12-10 08:07] LABS: MANUAL DIFF FLAG NO
--- NOTE | 2024-12-10 08:07 | ED_ITS ---
HPI - General Adult General Chief complaint: Abdominal Pain Stated complaint: Abd pain Time Seen by Provider: 12/10/24 08:00 Source: patient, family (mother), RN notes reviewed and old records reviewed Mode of arrival: ambulatory Limitations: no limitations History of Present Illness ED Provider: Rosina HPI narrative: Patient is a 29-year-old female with history of hypertension currently on amlodipine and lisinopril, obesity presenting to emergency department with complaint of epigastric pain and nausea since 8:00 p.m. last night. States that she frequently gets similar episodes but they only lasts around 15-20 minutes before resolving. Reports that her pain has decreased to 3/10 at this time and she is currently without nausea. Reports eating a pastrami level vial grinder and a piece of cake last night which she states is atypical for her. Mother notes that she typically develops this abdominal pain after eating fatty or greasy foods that are not typically part of her diet. She denies fever, sweats, chills. Denies any diarrhea or constipation. Denies any prior abdominal surgeries. MD complaint: abdominal pain Onset (ago): hour(s) Related Data Previous Rx's ?Medication ?Instructions ?Recorded amlodipine 5 mg tablet 5 mg PO DAILY #90 tabs 07/28 lisinopril 5 mg tablet 5 mg PO DAILY #90 tabs 07/28 Allergies Allergy/AdvReac Type Severity Reaction Status Date / Time No Known Allergies Allergy Verified 12/10/24 07:48 Review of Systems 2 Review of Systems: As per HPI Yes all other systems are reviewed and are negative Constitutional: Constitutional: Reports as per HPI [facility] Past Medical History Medical History (Updated 12/10/24 @ 15:26 by Jody Almaguer NP) History of depression Morbid obesity with BMI of 40.0-44.9, adult Essential hypertension Surgical History No pertinent past surgical history Family History Family History Father Substance use disorder Mental health disorder Myocardial infarction, Onset Age: 59 Mother Diabetes mellitus Rheumatoid arthritis Mental health disorder Sister Mental health disorder Maternal Grandmother No problems noted. Social History Social History Housing: Apartment Alcohol intake: current Alcohol intake frequency: a few times a month Patient Tobacco Use Status: Never used Tobacco Smoked in Last 30 Days: No e-Cigarette/Vaping Use: Never Used Use of substances other than those prescribed or required for medical reasons: No Advance Directives: Yes Advance Directives on File: Yes Advance Directives Date on File: 05/19/24 Do you have a plan to hurt others: No Plan Patient : No service: No Current occupational status: employed Cognitive needs: No Hearing needs: No Vision needs: No Physical Exam ED Vital Signs: Vital Signs - 24 hr 12/10/24 07:47 12/10/24 08:13 12/10/24 12:46 Temperature 98.1 F 98.4 F 97.3 F Pulse Rate 97 81 61 Respiratory Rate 16 16 14 Blood Pressure 138/101 H 140/90 H 120/80 Pulse Oximetry 99 98 100 Oxygen Delivery Method Room Air Room Air 12/10/24 14:36 Temperature 98.8 F Pulse Rate 59 Respiratory Rate 14 Blood Pressure 128/82 Pulse Oximetry 99 Oxygen Delivery Method Room Air BMI result Body Mass Index 43.6 Vital signs have been reviewed and appear to be correct. Blood pressure normal. Heart rate normal. Respiratory rate normal. Temperature normal. Oxygen saturation normal. Const General: cooperative, healthy appearing and no acute distress Orientation/consciousness: oriented to person, oriented to place, oriented to time and patient oriented x3 Limitations: no limitations [facility] Head: Yes normocephalic and Yes atraumatic Ears: external ears normal General nose exam: Normal external nose present Face and sinus: Yes face symmetric Mouth: oropharynx normal and moist mucous membranes Throat: Yes uvula midline Eyes Pupils: Equal, round and reactive pupils present Neck Neck: Yes normal visual inspection and Yes supple Resp Effort & Inspection: normal respiratory effort and able to speak in complete sentences Auscultation: clear to auscultation bilaterally Cardio Rate: regular rate Rhythm: regular rhythm Heart sounds: S1 normal heart sound present and S2 normal heart sound present GI Palpation (GI): Soft to palpation and Tenderness to palpation present (GI) in the epigastrum Auscultation: normoactive bowel sounds General: Yes no CVA tenderness Back/Spine/Pelvis Back: no CVA tenderness Skin General skin exam: elasticity normal and turgor normal Neuro General: oriented to person, oriented to place, oriented to time, patient oriented x3, moves all extremities, no focal motor deficits and CN's II-XI intact bilaterally Cranial nerves: Yes Equal, round and reactive pupils present Cognition (Neuro): normal cognition Extrem General: Yes full ROM, Yes no pedal edema and Yes no calf tenderness Psych Mental Status: mental status grossly normal Affect: normal affect Thought process: Normal thought process present Medications Administered Discontinued Medications Generic Name Dose Route Start Last Admin Trade Name Polly PRN Reason Stop Dose Admin Iohexol 100 ml 12/10/24 11:39 12/10/24 11:39 Iohexol 350 Mg/Ml 100 Ml Infus..Btl IV 12/10/24 11:40 85 ml ONCE ONE Administration Medical Decision Making Medical Decision Making [facility] Narrative: Patient is a 29-year-old female with history of hypertension currently on amlodipine and lisinopril, obesity presenting to emergency department with complaint of epigastric pain and nausea since 8:00 p.m. last night. On exam patient is awake, A+Ox3, VS WNL, afebrile, normal neurological exam without focal deficits, physical exam findings as above. Given reported symptoms and physical exam findings, initial differential includes but is not limited to biliary colic, cholecystitis, choledocolithiasis, gastritis, PUD, GERD. Patient declining pain or nausea medication at this time. Labs notable for no leukocytosis, no anemia, elevated Tbili, elevated transaminases and alk phose, significantly elevated lipase. RUQ U/S notable for cholelithiasis without concern for cholecystitis. My interpretation is in agreement with the radiologist's interpretation. Will order CT A/P for further evaluation of CBD obstruction. CT abdomen pelvis notable for no evidence of biliary obstruction, cholelithiasis with tiny amount of pericholecystic fluid and trace pericholecystic inflammation suspicious for early cholecystitis. Case discussed with el Sheriff who will come to evaluate patient in the ED. Patient evaluated by Sharita who recommends admission to medicine for trending LFTs. Does not suspect acute cholecystitis, likely choledocolithiasis pancreatitis with passed stone. Patient is agreeable with this plan. Differential Diagnosis Differential Diagnoses: The differential diagnosis associated with the presentation includes as per mdm Admission/Observation Consideration of admission/observation: Escalation of care including admission/observation considered Consult Healthcare Provider Management of the patient was discussed with: Bread Racker (Sharita, surgical PA) Lab Data [facility] Lab Attestation statement: I reviewed the patient's lab results. as per mdm 12/10/24 08:00 12/10/24 08:00 Labs: Lab Results 12/10/24 12/10/24 Range/Units 08:00 11:13 WBC 6.6 (4.8-10.8) X10*3/uL RBC 4.66 (4.20-5.50) X10*6/uL Hgb 13.8 (12.0-16.0) g/dl Hct 41.2 (37.0-47.0) % MCV 88.4 (80.0-98.0) fL MCH 29.6 (27.0-33.0) pg MCHC 33.5 (31.0-35.0) g/dl RDW 13.1 (11.0-16.0) % Plt Count 269 (160-400) X10*3/uL MPV 10.6 (9.4-12.3) fL Immature Gran % (Auto) 0.2 (0.0-0.4) % Neut % (Auto) 74.0 H (45-73) % Lymph % (Auto) 17.0 L (20-40) % Sebastian % (Auto) 6.8 (2-11) % Eos % (Auto) 1.5 (0-4) % Baso % (Auto) 0.5 (0-2) % Lymph # (Auto) 1.1 L (1.2-4.9) X10*3/uL Sebastian # (Auto) 0.5 (0.1-1.2) X10*3/uL Eos # (Auto) 0.1 (0.0-0.4) X10*3/uL Baso # (Auto) 0.0 (0.0-0.2) X10*3/uL Abs Immat Gran (auto) 0.01 (0.00-0.03) X10*3/uL Absolute Neuts (auto) 4.9 (2.0-8.3) x10*3/uL Absolute Nucleated RBC 0.000 (0.0-0.012) X10*3/uL Nucleated RBC % (auto) 0.0 (0.0-0.2) /100WBC Sodium 140 (135-145) mmol/L Potassium 4.1 (3.3-5.1) mmol/L Chloride 110 H (96-108) mmol/L Carbon Dioxide 22 (22-29) mmol/L Anion Gap 12 (12-20) BUN 13 (9-16) mg/dL Creatinine 0.73 (0.5-1.4) mg/dL Estim Creat Clear Calc 134.0 Estimated GFR > 60 Random Glucose 117 H (60-115) mg/dL Calcium 8.8 D (8.4-10.2) mg/dL Total Bilirubin 1.2 H (0.0-1.0) mg/dL Direct Bilirubin 0.7 H (0.0-0.5) mg/dL AST 872 H (5-31) U/L ALT 590 H (0-31) U/L Alkaline Phosphatase 127 H (39-117) U/L Total Protein 7.4 (6.5-8.0) g/dL Albumin 4.4 (3.5-5.0) g/dL Lipase 2392 H (8-78) U/L Beta HCG, Quant < 2 mIU/mL Urine Color Dark Yellow Urine Appearance Clear Urine pH 5.5 (5.0-9.0) Ur Specific [place] 1.015 (1.005-1.025) Urine Protein Negative (Neg-Trace) mg/dL Urine Glucose (UA) Negative (Negative) mg/dL Urine Ketones Trace (Negative) mg/dL Urine Blood Trace H (Negative) Urine Nitrite Negative (Negative) Ur Leukocyte Esterase Negative (Negative) Urine RBC 0-2 (0-2) /HPF Urine WBC 0-5 (0-5) /HPF Ur Squamous Epith Cells 0-2 (0-2) /HPF Urine Bacteria None Seen (None Seen) Hyaline Casts 0-2 (0-2) /LPF Independent Interpretation I performed an independent interpretation of an: Ultrasound and CT Scan Interpretation: RUQ U/S notable for cholelithiasis without evidence of cholecystitis. CT abdomen pelvis notable for no evidence of biliary obstruction, cholelithiasis with tiny amount of pericholecystic fluid and trace pericholecystic inflammation suspicious for early cholecystitis. Radiology Impression Discussion of test interpretation with radiology: I have reviewed the radiologist's reading. Radiologist Impression: US/US abdomen limited IMPRESSION: Cholelithiasis without evidence of acute cholecystitis CT/CT abdomen pelvis w IV con IMPRESSION: 1. There is no evidence of biliary obstruction. 2. There is cholelithiasis, with a tiny amount of pericholecystic fluid and trace pericholecystic inflammation. Findings are suspect for early acute cholecystitis. 3. Remainder of the examination is normal. External Record Review External record reviewed: Inpatient record, Office record and Outpatient record Critical Care Time Critical Care Time Critical Care Time: Yes Total Critical Care Time: 37 Attestation: I have personally provided critical care time exclusive of time spent on separately billable procedures. Time includes review of lab data, radiology results, discussion with consultants, and monitoring for potential decompensation. Intervention performed as documented. Discharge Plan Discharge Patient Disposition: Admitted As Inpatient Print Language: Filipino
[2024-12-10 08:11] LABS: Hematocrit 41.2 % (37.0-47.0); Hemoglobin 13.8 g/dl (12.0-16.0); Imm Gran Abs Auto 0.01 X10*3/uL (0.00-0.03); Imm Gran Pct Auto 0.2 % (0.0-0.4); Lymphocytes Absolute Auto 1.1 X10*3/uL (1.2-4.9); Mean Corpuscular HGB Conc 33.5 g/dl (31.0-35.0); Mean Corpuscular Hemoglobin 29.6 pg (27.0-33.0); Mean Corpuscular Volume 88.4 fL (80.0-98.0); NRBC Abs Auto 0.000 X10*3/uL (0.0-0.012); NRBC Pct Auto 0.0 /100WBC (0.0-0.2); Platelet Count 269 X10*3/uL (160-400); Red Blood Count 4.66 X10*6/uL (4.20-5.50); White Blood Count 6.6 X10*3/uL (4.8-10.8)
--- NOTE | 2024-12-10 08:18 | PC.NURSE ---
Patient presents to Ed c/o ABD rated 4/10 non radiating Pain started last night, patient reports pain being excruciating and radiating to her back Patient said she felt like this before and told her PCP who said its possible gall bladder issues Denies SOB, dizziness, , trauma, lightheadedness, fever, chills, and diarrhea VSS and up to date Provider in to see patient Plan of care on going
[2024-12-10 08:23] LABS: Alanine Aminotransferase 590 U/L (0-31); Albumin Level 4.4 g/dL (3.5-5.0); Alkaline Phosphatase 127 U/L (39-117); Anion Gap 12 (12-20); Aspartate Amino Transferase 872 U/L (5-31); Blood Urea Nitrogen 13 mg/dL (9-16); Calcium 8.8 mg/dL (8.4-10.2); Carbon Dioxide 22 mmol/L (22-29); Chloride 110 mmol/L (96-108); Creatinine Clr Calc Pharmacy 134.0; Estimated Glomerular Filt Rate > 60; Potassium 4.1 mmol/L (3.3-5.1); Sodium 140 mmol/L (135-145); Total Protein 7.4 g/dL (6.5-8.0)
[2024-12-10 08:55] LABS: Lipase 2392 U/L (8-78)
[2024-12-10 11:23] LABS: Appearance Urine Clear; Glucose Urine UA Negative (Negative); PH 5.5 (5.0-9.0); Specific Gravity - Urine 1.015 (1.005-1.025); UMIC TRIGGER UACC YES
[2024-12-10] MEDS: iohexoL 350 MG/ML 100 ML INFUS..BTL IV (11:39)
--- NOTE | 2024-12-10 15:15 | P.CONGS_ITS ---
History of Present Illness Consult details Consult date: 12/10/24 Reason for consult: gallstones Requesting physician: Jody Almaguer Narrative: 29 year old female with PMH of HTN who presented to the ED with complaints of acute onset of epigastric abdominal pain. She reports developing sharp, severe epigastric pain at about 8pm last night. It radiated to her upper back. It was associated with nausea without vomiting. The pain waxed and waned in severity over the next few hours and she woke up intermittently throughout the night due to the pain and had continued discomfort in the morning and therefore decided to seek evaluation in the ED. Work up in the ED included CBC, BMP, LFTs which were significant for total/direct bili of 2.1/1.7 AST/ALT 872/590 lipase 2392. No leukocytosis. ABD US showed gallstones without wall thickening or pericholecystic fluid, common bile duct is normal in caliber measuring [address] scan abd pelvis was then performed which confirmed gallstones with question of mile pericholecystic fluid present and trace pericholecystic inflammatory stranding. She reports feeling improved and currently denies any abdominal pain. She reports eating a pastrami sandwich and cake last night. She reports several prior episodes of similar pain after eating fatty foods. However these ast 10-15 minutes and resolve on their own. She denies fevers, chills, diarrhea, changes in skin color. She denies past abdominal surgery. She denies ETOH use. Review of Systems 2 Review of Systems: Yes all other systems are reviewed and are negative PMFSH Past Medical History Medical History (Updated 12/10/24 @ 15:40 by Sharita Matamoros PA-C) History of depression Morbid obesity with BMI of 40.0-44.9, adult Essential hypertension Family History Family History Father Substance use disorder Mental health disorder Myocardial infarction, Onset Age: 59 Mother Diabetes mellitus Rheumatoid arthritis Mental health disorder Sister Mental health disorder Maternal Grandmother No problems noted. Surgical History Surgical History No pertinent past surgical history Social History Social History Housing: Apartment Alcohol intake: current Alcohol intake frequency: a few times a month Patient Tobacco Use Status: Never used Tobacco Smoked in Last 30 Days: No e-Cigarette/Vaping Use: Never Used Use of substances other than those prescribed or required for medical reasons: No Advance Directives: Yes Advance Directives on File: Yes Advance Directives Date on File: 05/19/24 Do you have a plan to hurt others: No Plan Patient : No service: No Current occupational status: employed Cognitive needs: No Hearing needs: No Vision needs: No Meds Allergies Allergy/AdvReac Type Severity Reaction Status Date / Time No Known Allergies Allergy Verified 12/10/24 07:48 Physical Exam 2 Vital Signs: Vital Signs: Last Vital Signs Temp 98.8 F 12/10/24 14:36 Pulse 59 12/10/24 14:36 Resp 14 12/10/24 14:36 BP 128/82 12/10/24 14:36 Pulse Ox 99 12/10/24 14:36 O2 Del Method Room Air 12/10/24 14:36 BMI result Body Mass Index 43.6 Const: General: comfortable, no acute distress and alert O rientation/consciousness: patient oriented x3 Resp: Effort & Inspection: normal respiratory effort GI: Other: corpulent abdomen Inspection: No distended and No scar Palpation (GI): Soft to palpation, nontender, no guarding and not rigid Percussion: Yes normal to percussion Skin: General skin exam: no rashes or lesions noted and no jaundice Neuro: General: patient oriented x3 and moves all extremities Results Labs 12/10/24 08:00 12/10/24 08:00 Labs: Abnormal lab results 12/10/24 12/10/24 Range/Units 08:00 11:13 Neut % (Auto) 74.0 H (45-73) % Lymph % (Auto) 17.0 L (20-40) % Lymph # (Auto) 1.1 L (1.2-4.9) X10*3/uL Chloride 110 H (96-108) mmol/L Random Glucose 117 H (60-115) mg/dL Total Bilirubin 1.2 H (0.0-1.0) mg/dL Direct Bilirubin 0.7 H (0.0-0.5) mg/dL AST 872 H (5-31) U/L ALT 590 H (0-31) U/L Alkaline Phosphatase 127 H (39-117) U/L Lipase 2392 H (8-78) U/L Urine Blood Trace H (Negative) Short CBC 12/10/24 Range/Units 08:00 WBC 6.6 (4.8-10.8) X10*3/uL Hgb 13.8 (12.0-16.0) g/dl Hct 41.2 (37.0-47.0) % Plt Count 269 (160-400) X10*3/uL BMP 12/10/24 08:00 Sodium 140 Potassium 4.1 Chloride 110 H Carbon Dioxide 22 BUN 13 Creatinine 0.73 Calcium 8.8 D Liver Function 12/10/24 Range/Units 08:00 Total Bilirubin 1.2 H (0.0-1.0) mg/dL Direct Bilirubin 0.7 H (0.0-0.5) mg/dL AST 872 H (5-31) U/L ALT 590 H (0-31) U/L Alkaline Phosphatase 127 H (39-117) U/L Albumin 4.4 (3.5-5.0) g/dL Urine 12/10/24 Range/Units 11:13 Urine Color Dark Yellow Urine Appearance Clear Urine pH 5.5 (5.0-9.0) Ur Specific [place] 1.015 (1.005-1.025) Urine Protein Negative (Neg-Trace) mg/dL Urine Glucose (UA) Negative (Negative) mg/dL All other labs normal. Imaging Abdomen CT scan report/results: report reviewed and image reviewed Abdominal ultrasound report/results: report reviewed and image reviewed Additional studies: labs reviewed Assessment and Plan (1) Gallstone pancreatitis: Status: Acute Plan 29 year old female with PMH of HTN who presented to the ED with complaints of acute onset of epigastric abdominal pain found to have gallstones and elevated LFTs and lipase. Picture suggestive of choledocolithiasis/gallstone pancreatitis likely with passed stone as her symptoms have resolved. Recommend admission to the hospitalist service with trending of her LFTs. Clinically she does not have acute cholecystitis as her pain abdomen exam is very benign and completely non tender without a leukocytosis. She does appear to be having episodes of biliary colic and we did discuss laparoscopic cholecystectomy during her stay or on an outpatient basis. She is concerned about her job and would like to hold off on surgical intervention currently. Can advance to low fat diet as tolerated. Will continue to follow. Procedures Date of Service Date of Service: 12/10/24
[2024-12-10] MEDS: 0.9 % Sodium Chloride Flush 3 ML SYRINGE IVFLUSH ×2 (16:00→22:51)
--- NOTE | 2024-12-10 16:20 | PHA.MEDREC ---
Addendum entered by Alexander Lebron, [place] 12/10/24 16:56: med rec checked by [facility] Original Note: Pharmacy Consult ? Medication Reconciliation Pharmacy has completed the medication reconciliation. Patient was able to confirm her medications. Patient had her medications yesterday.
--- NOTE | 2024-12-10 16:55 | P.HPHOSP_ITS ---
History of Present Illness Date of Service: 12/10/24 Chief Complaint: Abd pain 29-year-old female with a history of hypertension presents to the emergency room with complaints of epigastric pain and nauseous since 20:00 last night. She has gotten these episodes previous but were self-limiting to 15-20 minutes. Describes her pain as 3 to 4/10 at the time and without nausea. Reports eating 8 atypical fatty meal (pr strongly thread grinder tool) after which the pain began. Queried, she states that if she eats fatty foods that she gets the pain. In the emergency room, workup including ultrasound consistent with cholelithiasis. At this point she is pain-free. She will be admitted overnight. . . Diet will be ordered. Surgery we will see again in a.m. Review of Systems 2 Review of Systems: Denies chest pain Denies shortness of breath Admits nausea; Denies vomiting diarrhea Denies fever chills PMFSH Medical History History of depression Morbid obesity with BMI of 40.0-44.9, adult Essential hypertension Family History Father Substance use disorder Mental health disorder Myocardial infarction, Onset Age: 59 Mother Diabetes mellitus Rheumatoid arthritis Mental health disorder Sister Mental health disorder Maternal Grandmother No problems noted. Surgical History No pertinent past surgical history Social History Housing: Apartment Alcohol intake: current Alcohol intake frequency: a few times a month Patient Tobacco Use Status: Never used Tobacco Smoked in Last 30 Days: No e-Cigarette/Vaping Use: Never Used Use of substances other than those prescribed or required for medical reasons: No Advance Directives: Yes Advance Directives on File: Yes Advance Directives Date on File: 05/19/24 Do you have a plan to hurt others: No Plan Patient : No service: No Current occupational status: employed Cognitive needs: No Hearing needs: No Vision needs: No Meds Allergies Allergy/AdvReac Type Severity Reaction Status Date / Time No Known Allergies Allergy Verified 12/10/24 07:48 Active Medications: Current Medications Acetaminophen (Acetaminophen 325 Mg Tablet) 650 mg PO Q6H PRN PRN Reason: Pain, Mild 1-3,fever,headache Amlodipine Besylate (Amlodipine Besylate 5 Mg Tablet) 5 mg PO BEDTIME [facility]; Protocol Calcium Carbonate (Calcium Carbonate 750 Mg Tab.Chew) 750 mg PO Q4H PRN PRN Reason: Heartburn Enoxaparin Sodium (Enoxaparin Sodium 40 Mg/0.4 Ml Syringe) 40 mg SUBCUT Q24H [facility] Last Admin: 12/10/24 15:59 Dose: 40 mg Lisinopril (Lisinopril 5 Mg Tablet) 5 mg PO DAILY [facility]; Protocol Magnesium Hydroxide (Milk Of Magnesia 30 Ml Oral.Susp) 30 ml PO DAILY PRN PRN Reason: Constipation Melatonin (Melatonin 3 Mg Tablet) 6 mg PO BEDTIME PRN PRN Reason: Insomnia Sodium Chloride (0.9 % Sodium Chloride Flush 3 Ml Syringe) 3 ml IVFLUSH QSHIFT [facility] Last Admin: 12/10/24 16:00 Dose: 3 ml Home Medications ?Medication ?Instructions ?Recorded ?Confirmed ?Last Taken ?Type amlodipine 5 mg tablet 5 mg PO BEDTIME 12/10/2404/0512/09/24 History Physical Exam 2 Vital Signs and Narrative: Vital Signs: Last Vital Signs Temp 97.6 F 12/10/24 16:23 Pulse 53 12/10/24 16:23 Resp 14 12/10/24 16:23 BP 133/85 12/10/24 16:23 Pulse Ox 98 12/10/24 16:23 O2 Del Method Room Air 12/10/24 16:23 BMI result Body Mass Index 43.6 Const: Other: Awake alert lying quietly in stretcher. No acute distress. Appears comfortable Resp: Other: Clear to auscultation bilaterally no rales rhonchi or wheezes Cardio: Other: No S4; positive S1-S2; no S3 murmurs rubs or gallops GI: Other: Soft nontender nondistended normoactive bowel sounds Extrem: Other: No edema bilaterally Results Labs 12/10/24 08:00 12/10/24 08:00 Labs: Laboratory Results - last 24 hr 12/10/24 12/10/24 08:00 11:13 MCV 88.4 MCH 29.6 MCHC 33.5 RDW 13.1 Plt Count 269 MPV 10.6 Immature Gran % (Auto) 0.2 Neut % (Auto) 74.0 H Lymph % (Auto) 17.0 L [place] % (Auto) 6.8 Eos % (Auto) 1.5 Baso % (Auto) 0.5 Lymph # (Auto) 1.1 L [place] # (Auto) 0.5 Eos # (Auto) 0.1 Baso # (Auto) 0.0 Abs Immat Gran (auto) 0.01 Absolute Neuts (auto) 4.9 Absolute Nucleated RBC 0.000 Nucleated RBC % (auto) 0.0 Anion Gap 12 Estim Creat Clear Calc 134.0 Estimated GFR > 60 Random Glucose 117 H Calcium 8.8 D Total Bilirubin 1.2 H Direct Bilirubin 0.7 H AST 872 H ALT 590 H Alkaline Phosphatase 127 H Total Protein 7.4 Albumin 4.4 Lipase 2392 H Beta HCG, Quant < 2 Urine Color Dark Yellow Urine Appearance Clear Urine pH 5.5 Ur Specific [place] 1.015 Urine Protein Negative Urine Glucose (UA) Negative Urine Ketones Trace Urine Blood Trace H Urine Nitrite Negative Ur Leukocyte Esterase Negative Urine RBC 0-2 Urine WBC 0-5 Ur Squamous Epith Cells 0-2 Urine Bacteria None Seen Hyaline Casts 0-2 Imaging Radiologist's Impressions: Impressions Abdomen Ultrasound 12/10/24 09:48 IMPRESSION: Cholelithiasis without evidence of acute cholecystitis. Electronically signed by: Tyson Parks MD 12/10/2024 10:49 AM EDT Abdomen/Pelvis CT 12/10/24 11:34 IMPRESSION: 1. There is no evidence of biliary obstruction. 2. There is cholelithiasis, with a tiny amount of pericholecystic fluid and trace pericholecystic inflammation. Findings are suspect for early acute cholecystitis. 3. Remainder of the examination is normal. Electronically signed by: Lamberto Baeza MD 12/10/2024 12:17 PM EDT RP Assessment and Plan (1) Cholelithiasis: Qualifiers: Cholelithiasis location: other site Status: Acute (2) Elevated liver transaminase level: Status: Acute (3) Essential hypertension: Status: Acute Plan 29-year-old female with past medical history significant for hypertension presents with recurrent abdominal pain after greasy meals however this time was not self-limiting. Workup in the ER including transaminases and ultrasound consistent with cholelithiasis 1. Cholelithiasis -low-fat diet... Follow up response -trach liver function tests, CBC in a.m. -further plans based on forthcoming data and surgical re-evaluation 2. Elevated transaminases -related to 1. -trend clinically 3. Hypertension -acceptable control on current therapies -adjust as indicated -Lovenox Full code Quality Stroke Does the patient have a stroke diagnosis?: No VTE Prior VTE?: No VTE Risk Level:: Medical - moderate - high VTE Device Contraindication: Treatment Not Indicated VTE Drug Contraindication: N/A - Med Ordered
[2024-12-11 03:29] VITALS: BP 151/80; PULSE 101; RESP 18; TEMP 36.4; O2SAT 97
[2024-12-11 05:58] LABS: Hematocrit 38.1 % (37.0-47.0); Hemoglobin 13.0 g/dl (12.0-16.0); Imm Gran Abs Auto 0.02 X10*3/uL (0.00-0.03); Imm Gran Pct Auto 0.4 % (0.0-0.4); Lymphocytes Absolute Auto 2.1 X10*3/uL (1.2-4.9); MANUAL DIFF FLAG NO; Mean Corpuscular HGB Conc 34.1 g/dl (31.0-35.0); Mean Corpuscular Hemoglobin 29.7 pg (27.0-33.0); Mean Corpuscular Volume 87.2 fL (80.0-98.0); NRBC Abs Auto 0.000 X10*3/uL (0.0-0.012); NRBC Pct Auto 0.0 /100WBC (0.0-0.2); Platelet Count 248 X10*3/uL (160-400); Red Blood Count 4.37 X10*6/uL (4.20-5.50); White Blood Count 5.5 X10*3/uL (4.8-10.8)
[2024-12-11 06:23] LABS: Alanine Aminotransferase 363 U/L (0-31); Albumin Level 3.8 g/dL (3.5-5.0); Alkaline Phosphatase 103 U/L (39-117); Anion Gap 10 (12-20); Aspartate Amino Transferase 204 U/L (5-31); Blood Urea Nitrogen 10 mg/dL (9-16); Calcium 8.6 mg/dL (8.4-10.2); Carbon Dioxide 25 mmol/L (22-29); Chloride 109 mmol/L (96-108); Creatinine Clr Calc Pharmacy 146.1; Estimated Glomerular Filt Rate > 60; Potassium 3.8 mmol/L (3.3-5.1); Sodium 140 mmol/L (135-145); Total Protein 6.6 g/dL (6.5-8.0)
[2024-12-11 07:40] VITALS: BP 127/72; PULSE 58; RESP 16; TEMP 36.5; O2SAT 97
--- NOTE | 2024-12-11 07:43 | P.PNGS_ITS ---
Subjective Subjective Date of Service: 12/11/24 Interval history: Denies any further abd pain. Would like to eat and go home. Physical Exam 2 Vital Signs: Vital Signs: Last Vital Signs Temp 97.7 F 12/11/24 07:40 Pulse 58 12/11/24 07:40 Resp 16 12/11/24 07:40 BP 127/72 12/11/24 07:40 Pulse Ox 97 12/11/24 07:40 O2 Del Method Room Air 12/11/24 07:40 BMI result Body Mass Index 43.6 Const: General: comfortable, no acute distress and alert O rientation/consciousness: patient oriented x3 Resp: Effort & Inspection: normal respiratory effort GI: Other: abd soft, nondistended nontender Palpation (GI): no guarding Percussion: Yes normal to percussion Skin: General skin exam: no rashes or lesions noted and no jaundice Neuro: General: patient oriented x3 and moves all extremities Objective Data Active Medications Acetaminophen (Acetaminophen 325 Mg Tablet) 650 mg PO Q6H PRN PRN Reason: Pain, Mild 1-3,fever,headache Amlodipine Besylate (Amlodipine Besylate 5 Mg Tablet) 5 mg PO BEDTIME [facility]; Protocol Last Admin: 12/10/24 22:38 Dose: 5 mg Documented By: CHIQUI Calcium Carbonate (Calcium Carbonate 750 Mg Tab.Chew) 750 mg PO Q4H PRN PRN Reason: Heartburn Enoxaparin Sodium (Enoxaparin Sodium 40 Mg/0.4 Ml Syringe) 40 mg SUBCUT Q24H [facility] Last Admin: 12/10/24 15:59 Dose: 40 mg Documented By: MALINI Lisinopril (Lisinopril 5 Mg Tablet) 5 mg PO DAILY [facility]; Protocol Magnesium Hydroxide (Milk Of Magnesia 30 Ml Oral.Susp) 30 ml PO DAILY PRN PRN Reason: Constipation Melatonin (Melatonin 3 Mg Tablet) 6 mg PO BEDTIME PRN PRN Reason: Insomnia Sodium Chloride (0.9 % Sodium Chloride Flush 3 Ml Syringe) 3 ml IVFLUSH QSHIFT [facility] Last Admin: 12/10/24 22:51 Dose: 3 ml Documented By: CHIQUI Labs 12/11/24 05:25 12/11/24 05:25 Labs: Laboratory Results - last 24 hr 12/10/24 12/10/24 12/11/24 08:00 11:13 05:25 MCV 88.4 87.2 MCH 29.6 29.7 MCHC 33.5 34.1 RDW 13.1 13.1 Plt Count 269 248 MPV 10.6 10.7 Immature Gran % (Auto) 0.2 0.4 Neut % (Auto) 74.0 H 49.7 Lymph % (Auto) 17.0 L 37.1 [place] % (Auto) 6.8 7.2 Eos % (Auto) 1.5 5.1 H Baso % (Auto) 0.5 0.5 Lymph # (Auto) 1.1 L 2.1 [place] # (Auto) 0.5 0.4 Eos # (Auto) 0.1 0.3 Baso # (Auto) 0.0 0.0 Abs Immat Gran (auto) 0.01 0.02 Absolute Neuts (auto) 4.9 2.8 Absolute Nucleated RBC 0.000 0.000 Nucleated RBC % (auto) 0.0 0.0 Anion Gap 12 10 L Estim Creat Clear Calc 134.0 146.1 Estimated GFR > 60 > 60 Random Glucose 117 H Fasting Glucose 90 Calcium 8.8 D 8.6 Total Bilirubin 1.2 H 0.5 Direct Bilirubin 0.7 H AST 872 H 204 H ALT 590 H 363 H Alkaline Phosphatase 127 H 103 Total Protein 7.4 6.6 Albumin 4.4 3.8 Lipase 2392 H Beta HCG, Quant < 2 Urine Color Dark Yellow Urine Appearance Clear Urine pH 5.5 Ur Specific [place] 1.015 Urine Protein Negative Urine Glucose (UA) Negative Urine Ketones Trace Urine Blood Trace H Urine Nitrite Negative Ur Leukocyte Esterase Negative Urine RBC 0-2 Urine WBC 0-5 Ur Squamous Epith Cells 0-2 Urine Bacteria None Seen Hyaline Casts 0-2 Procedures Date of Service Date of Service: 12/11/24 Progress Note: A&P Assessment and plan (1) Elevated liver transaminase level: Status: Acute (2) Cholelithiasis: Status: Acute Plan Abdominal pain resolved. LFTs significantly improved. Abd remains very benign and soft, nontender. Would like to eat and go home. We discussed treatment options including observation and low fat diet or proceeding with laparoscopic cholecystectomy. She states she would like to continue trialing a low fat diet since she has only had episodes after eating fatty foods. She will follow up in the office in 1-2 weeks. Time Spent With Patient Time: Total time managing care of this patient today ____ minutes. Quality Stroke Does the patient have a stroke diagnosis?: No VTE Prior VTE?: No VTE Risk Level:: Medical - moderate - high VTE Device Contraindication: Treatment Not Indicated VTE Drug Contraindication: N/A - Med Ordered
[2024-12-11] MEDS: 0.9 % Sodium Chloride Flush 3 ML SYRINGE IVFLUSH (08:45)
--- NOTE | 2024-12-11 09:14 | PM.DS ---
DS: Providers Provider Date of Service: 12/11/24 Date of admission: 12/10/24 15:44 Date of discharge: 12/11/24 Primary care physician: Anisha Estevez MD DS: Diagnosis Discharge Diagnosis (1) Elevated liver transaminase level: Status: Acute (2) Cholelithiasis: Status: Acute DS: Summary Hospital Course Hospital Course: 29-year-old female with a history of hypertension presents to the emergency room with complaints of epigastric pain and nauseous since 20:00 last night. She has gotten these episodes previous but were self-limiting to 15-20 minutes. Describes her pain as 3 to 4/10 at the time and without nausea. 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 Queried, she states that if she eats fatty foods that she gets the pain. In the emergency room, workup including ultrasound consistent with cholelithiasis. Hospital Course Admitted to the general medical floor. No recurrence of pain overnight. Tolerated low-fat diet this a.m.. Discussed with surgery all in agreement patient will be discharged home on low-fat diet we will follow up in 1-[address] Phelps in office. Time Attestation Discharge Coordination Time (in mins): 35 Quality: Safe Use of Opioids Does Pt have an Active Cancer Diagnosis on the Problem List?: No Quality: Stroke Does the patient have a stroke diagnosis?: No Physical Exam Vital Signs: Vital Signs: Last Vital Signs Temp 97.7 F 12/11/24 07:40 Pulse 58 12/11/24 07:40 Resp 16 12/11/24 07:40 BP 127/72 12/11/24 07:40 Pulse Ox 97 12/11/24 07:40 O2 Del Method Room Air 12/11/24 07:40 BMI result Body Mass Index 43.6 Const: Other: Awake alert lying quietly in stretcher. No acute distress. Appears comfortable Resp: Other: Clear to auscultation bilaterally no rales rhonchi or wheezes Cardio: Other: No S4; positive S1-S2; no S3 murmurs rubs or gallops GI: Other: Soft nontender nondistended normoactive bowel sounds Extrem: Other: No edema bilaterally DS: Data Data Completed and Pending Labs on day of discharge: Laboratory Results - last 24 hr 1012/10/24 12/11/24 08:00 11:13 05:25 WBC 5.5 RBC 4.37 Hgb 13.0 Hct 38.1 MCV 87.2 MCH 29.7 MCHC 34.1 RDW 13.1 Plt Count 248 MPV 10.7 Immature Gran % (Auto) 0.4 Neut % (Auto) 49.7 Lymph % (Auto) 37.1 [place] % (Auto) 7.2 Eos % (Auto) 5.1 H Baso % (Auto) 0.5 Lymph # (Auto) 2.1 [place] # (Auto) 0.4 Eos # (Auto) 0.3 Baso # (Auto) 0.0 Abs Immat Gran (auto) 0.02 Absolute Neuts (auto) 2.8 Absolute Nucleated RBC 0.000 Nucleated RBC % (auto) 0.0 Sodium 140 Potassium 3.8 Chloride 109 H Carbon Dioxide 25 Anion Gap 10 L BUN 10 Creatinine 0.67 Estim Creat Clear Calc 146.1 Estimated GFR > 60 Fasting Glucose 90 Calcium 8.6 Total Bilirubin 0.5 Direct Bilirubin 0.7 H AST 204 H ALT 363 H Alkaline Phosphatase 103 Total Protein 6.6 Albumin 3.8 Urine Color Dark Yellow Urine Appearance Clear Urine pH 5.5 Ur Specific [place] 1.015 Urine Protein Negative Urine Glucose (UA) Negative Urine Ketones Trace Urine Blood Trace H Urine Nitrite Negative Ur Leukocyte Esterase Negative Urine RBC 0-2 Urine WBC 0-5 Ur Squamous Epith Cells 0-2 Urine Bacteria None Seen Hyaline Casts 0-2 Discharge Plan Discharge Anticipated Discharge Date/Time: 12/11/24 09:10 Patient Disposition: Home, Self-Care Discharge Diagnosis: Gallstone pancreatitis Referrals: Anisha Estevez MD [Primary Care Provider, Internal Medicine] - 1 Week Berto Phelps MD [Physician, General Surgery] - 1 Week Discharge Medications: Continued lisinopril 5 mg tablet 5 mg PO DAILY Qty: 90 1RF amlodipine 5 mg tablet 5 mg PO BEDTIME Discharge Orders: Discharge Order (Routine); Ordered 12/11/24 Ordered By: Kt Gandara Diet: Low-fat Activity on Discharge: As tolerated Stand Alone Forms: Patient Portal Discharge page, Work/School Release Print Language: Arabic Care Plan Goals: Continue all medicines as taken prior to hospitalization Health Concerns: Continue to eat a low-fat diet Plan of Treatment: Follow up with Dr. Phelps in 1-2 weeks in office Assessment: See discharge summary
[2024-12-11 09:55] VITALS: BP 128/98; PULSE 95; RESP 16; TEMP 36.4; O2SAT 97
[2024-12-11 10:01] LABS: Lipase 70 U/L (8-78)
--- NOTE | 2024-12-13 11:04 | MHC.CM.PN ---
PT LIVES WITH FRIENDS AND IS INDEPENDENT WITH CARE PCP: GALA LUKE NO DME/SERVICES PT DISCHARGED HOME ON 12/12/24 WITH NO SERVICES VIA PRIVATE TRANSPORT
== END 2024-12-11 10:02 | disposition home or self-care (01) | DRG 440 ==
LOC: HO.ED 15:33 → HO.EDOVER 16:03 → HO.S3 19:37
PROVIDERS: Registered Nurse Emergency; Admitting Provider Hospitalist; Emergency Provider Emergency Medicine; PCP Internal Medicine; Visit Provider Hospitalist
DX: K85.10 Biliary acute pancreatitis without necrosis or infection (principal); K80.20 Calculus of gallbladder without cholecystitis without obstruction; Z79.899 Other long term (current) drug therapy
CPT/HCPCS: 36415; 74177; 76705; 80053; 81001; 82248; 83690; 84702; 85025; 99285; J1650; Q9967

== ENCOUNTER → 2024-12-10 07:54 | Outpatient (BNV) | payer OTHER, SELFPAY | PROVIDERS: Emergency Provider Emergency Medicine; PCP Internal Medicine; Visit Provider Physician Assistant Surgical | DX: K85.10 Biliary acute pancreatitis without necrosis or infection (principal) | CPT/HCPCS: 99222; 99232 ==

== ENCOUNTER → 2024-12-10 08:46 | Outpatient (BNV) | payer OTHER, SELFPAY | PROVIDERS: Emergency Provider Emergency Medicine; PCP Internal Medicine; Visit Provider Radiology Diagnostic Radiology | DX: K80.20 Calculus of gallbladder without cholecystitis without obstruction (principal) | CPT/HCPCS: 74177; 76705 ==

== ENCOUNTER → 2024-12-10 15:44 | Outpatient (BNV) | payer OTHER, SELFPAY | PROVIDERS: Admitting Provider Hospitalist; Emergency Provider Emergency Medicine; PCP Internal Medicine; Visit Provider Hospitalist | DX: K80.20 Calculus of gallbladder without cholecystitis without obstruction (principal); R74.01 Elevation of levels of liver transaminase levels; I10 Essential (primary) hypertension | CPT/HCPCS: 99223; 99239 ==

== ENCOUNTER 2025-01-06 14:05 | Outpatient (AMB) | payer OTHER, SELFPAY ==
--- NOTE | 2025-01-06 14:20 | MHC.OFFVIS ---
Vital Signs 01/06/25 14:36 Height 5 ft 3 in Weight 240 lb BMI 42.5 BP 142/89 H Blood Pressure Location Lt brachial Position Sitting Pulse 74 Intake Visit Reasons: gallstones Intake Note: Patient is seen in office for evaluation of gallstones. Pt c/o: pain RUQ radiates to the back, episodes last 15/20min after meals, went to ER due to increase pain for 12hrs, nausea, denies diarrhea, constipation or other concerns, had imaging done at ED Flavorer Required: No Accompanied by: Self / Same As Patient Allergies No Known Allergies Allergy (Verified 01/06/25 14:35) Medication List - Last Reconciled 01/06/25 by Berto Phelps MD amlodipine 5 mg PO BEDTIME lisinopril 5 mg PO DAILY HPI Comments Details: 29-year-old female patient returning following a recent admission for symptomatic cholelithiasis. She was admitted on 12/10/2024 with complaints of an acute onset of epigastric abdominal pain, sharp in nature with radiation to the right upper quadrant and back. The pain was associated with nausea and vomiting. She presented to the emergency department and was noted to be tender in the right upper quadrant with a positive Ferrera sign. Workup revealed elevation of the liver function tests and lipase. White blood cell count was normal. Abdominal ultrasound revealed multiple gallstones within the gallbladder without wall thickening or pericholecystic fluid. CT abdomen and pelvis also confirmed multiple gallstones within the gallbladder with mild pericholecystic fluid. She was observed for 24 hours and by the 2nd day felt much improved with no abdominal pain. She was subsequently discharged to home and returns today in follow-up. She reports 1 mild episode of abdominal pain yesterday after eating a poke bowl with salmon. The pain lasted for approximately 15 minutes and then resolved spontaneously. She has tried to remain on a low-fat diet and seems to be doing well with this. She is considering undergoing surgery early next year. 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 [facility] Medical History Cholelithiasis History of depression Morbid obesity with BMI of 40.0-44.9, adult Essential hypertension Surgical History No pertinent past surgical history Family History Father Substance use disorder Mental health disorder Myocardial infarction, Onset Age: 59 Mother Diabetes mellitus Rheumatoid arthritis Mental health disorder Sister Mental health disorder Maternal Grandmother No problems noted. Social History Household Members: Friend(s) Housing: House Alcohol intake: current Alcohol intake frequency: a few times a month Patient Tobacco Use Status: Never used Tobacco e-Cigarette/Vaping Use: Never Used Advance Directives Date on File: 05/19/24 service: No Current occupational status: employed Cognitive needs: No Hearing needs: No Vision needs: No Review of Systems Const All systems reviewed & are unremarkable except as noted in HPI and below Physical Exam Vital Signs: Last Vital Signs Pulse 74 01/06/25 14:36 BP 142/89 H 01/06/25 14:36 BMI result Body Mass Index 42.5 Const General: cooperative and no acute distress Nutritional Appearance: well nourished Orientation/consciousness: patient oriented x3 Limitations: no limitations HEENT Head: Yes normocephalic and Yes atraumatic Ears: hearing grossly normal bilaterally Resp Effort & Inspection: normal respiratory effort, no audible wheezes, no cough and no respiratory distress Cardio Jugular venous distension: no JVD GI Other: Negative Ferrera sign Inspection: Yes normal to inspection Palpation (GI): Soft to palpation, nontender, no guarding, not rigid and No hepatosplenomegaly present Skin Other: Warm, dry, no rash Neuro General: patient oriented x3 Extrem General: Yes no clubbing, cyanosis or edema Assessment & Plan Assessment & Plan (1) Symptomatic cholelithiasis: Code(s): K80.20 - Calculus of gallbladder without cholecystitis without obstruction Category: Medical Plan 29-year-old female patient presenting with complaints of epigastric and right upper quadrant abdominal pain returning following a recent admission for gallstone pancreatitis and symptomatic cholelithiasis. She feels much improved overall with only minimal abdominal pain experience yesterday after eating salmon. I reviewed the findings on ultrasound and CT with the patient revealing multiple gallstones within the gallbladder. I recommended an elective laparoscopic or possible open cholecystectomy and after discussing the procedure risks and alternatives, she consents to the surgery. Coding Level of Care Code Est Pt Level 4 (27078) Diagnoses Symptomatic cholelithiasis K80.20
[2025-01-06 14:36] VITALS: BP 142/89; PULSE 74; BMI 42.5
== END 2025-01-06 14:48 | disposition home or self-care (01) ==
LOC: HO.HGS 14:06
PROVIDERS: PCP Internal Medicine; Visit Provider Surgery
DX: K80.20 Calculus of gallbladder without cholecystitis without obstruction (principal)
CPT/HCPCS: 99214

== ENCOUNTER 2025-02-11 05:59 | Day surgery (SDC) | payer OTHER, SELFPAY ==
--- NOTE | 2025-02-09 09:39 | HO.ANESPROP2 ---
Documented by User: Ashly Baker NP 02/09/25 09:40 HPI - Anesthesia Eval Consult details Narrative: 29yo F for Cholecystectomy Laparoscopic,possible open BMI 42 PMFSH Active Problems Active Problems: All Active Problems Symptomatic cholelithiasis (Acute) Lesion of skin of face (Acute) Positional lightheadedness (Acute) Morbid obesity with BMI of 40.0-44.9, adult (Acute) Past Medical History Medical History Cholelithiasis History of depression Morbid obesity with BMI of 40.0-44.9, adult Essential hypertension Family History Family History Father Substance use disorder Mental health disorder Myocardial infarction, Onset Age: 59 Mother Diabetes mellitus Rheumatoid arthritis Mental health disorder Sister Mental health disorder Maternal Grandmother No problems noted. Surgical History Surgical History No pertinent past surgical history Social History Social History Household Members: Friend(s) Housing: House Alcohol intake: current Alcohol intake frequency: a few times a month Comment: correct count Patient Tobacco Use Status: Never used Tobacco e-Cigarette/Vaping Use: Never Used Advance Directives Date on File: 05/19/24 service: No Current occupational status: employed Cognitive needs: No Hearing needs: No Vision needs: No Meds Allergies Allergy/AdvReac Type Severity Reaction Status Date / Time No Known Allergies Allergy Verified 01/06/25 14:35 Exam Pertinent Lab Results Pertinent Lab Results: Laboratory Tests 12/11/24 05:25 WBC 5.5 Hgb 13.0 Hct 38.1 Plt Count 248 Sodium 140 Potassium 3.8 Chloride 109 H Carbon Dioxide 25 BUN 10 Creatinine 0.67 Assessment and Plan Assessment Anesthesia Assessment: Chart Reviewed Documented by User: Abdoul Santana MD 02/11/25 08:07 PMFSH Past Medical History Medical History Cholelithiasis History of depression Morbid obesity with BMI of 40.0-44.9, adult Essential hypertension Family History Family History Father Substance use disorder Mental health disorder Myocardial infarction, Onset Age: 59 Mother Diabetes mellitus Rheumatoid arthritis Mental health disorder Sister Mental health disorder Maternal Grandmother No problems noted. Family history of problems with anesthesia: No Surgical History Surgical History No pertinent past surgical history History of Problems with Anesthesia: Unobtainable Social History Social History Household Members: Friend(s) Housing: House Alcohol intake: current Alcohol intake frequency: a few times a month Comment: correct count Patient Tobacco Use Status: Never used Tobacco e-Cigarette/Vaping Use: Never Used Advance Directives Date on File: 05/19/24 service: No Current occupational status: employed Cognitive needs: No Hearing needs: No Vision needs: No Meds Allergies Allergy/AdvReac Type Severity Reaction Status Date / Time No Known Allergies Allergy Verified 01/06/25 14:35 Exam Exam Date and Time: 02/11/25 Airway Mallampati Class: III TM Dist: >3cm Neck ROM: Full Heart: st Lungs: ctab vesicular Assessment and Plan Assessment Anesthesia Assessment: Anesthesia Plan Discussed Final Anesthetic Review Family History of Problems with Anesthesia: No History of Problems with Anesthesia: Unobtainable NPO: Yes ASA Class: II Final Preanesthetic Review: No Changes in Pt Med Stat, Meds/Allgs Chart Reviewed, Consent Obtained/Reviewed and Anes Risks/Benef Reviewed Patient Risk: Low Procedure Risk: Low Anesthetic Plan Anesthetic Plan: GA Disposition: Standard PACU
[2025-02-09 10:28] VITALS: BMI 42.5
[2025-02-11] VITALS (7 sets, daily range): BP systolic 126–143; BP diastolic 74–93; PULSE 65–106; RESP 10–23; TEMP 36.4–37.1; O2SAT 93–100; BMI 41.7
[2025-02-11] MEDS: Lactated Ringers 1,000 ML 100 ML IVCONT (06:24)
[2025-02-11 06:39] LABS: UPreg QC Valid YES
--- NOTE | 2025-02-11 07:20 | MHC.SHP ---
Pre-Procedural Eval Section A - 24 Hr Update-Section A only Date of Service: 02/11/25 The patient is an INPATIENT: No Changes since office visit: Yes Patient answered all questions; No Cold of Flu in the past 2 weeks, No New Medical Problems and No Changes in Medication The patient has been examined within 24 hours of the surgical procedure. The History & Physical has been completed within 30 days and I have reviewed it.: No Section B - Complete if H&P > 30 days Chief Complaint: Calculus of gallbladder without cholecystitis with Details of Present Illness: no changes noted Relevant Family History (Specify if Yes): No Relevant Social History: None Present Medications: see Short Stay Collaborative assessment Medical History: No relevant PMH History of Previous Operations: No relevant previous surgery Allergies: Allergies Allergy/AdvReac Type Severity Reaction Status Date / Time No Known Allergies Allergy Verified 01/06/25 14:35 Review of Systems Sugical H&P ROS: Negative: Constitution, Cardiovascular, Respiratory, Neurological, Psychiatric, Hem-Onc, Allergic/Immunologic, Gastrointestinal, Genitourinary, Musculoskeletal, Integumentary, Endocrine and Eyes/Ears/Nose/Throat Exam Surgical H&P Exam: Normal: HEENT, Normal: Heart, Normal: Lungs, Normal: Extremities, Normal: Abdomen, Normal: Skin and Normal: Neurological Plan Diagnosis/Plan: Unchanged I have reviewed the history and physical and performed a pertinent physical examination on my patient. No changes have occurred unless specified. Time Spent With Patient Time: Total time managing care of this patient today ____ minutes.
[2025-02-11] MEDS: cefoTEtan disodium 2 GM VIAL IVPUSH (07:45)
--- NOTE | 2025-02-11 08:34 | W.PM.OPN ---
Operative Note Operative Note Date of Service: 02/11/25 Narrative: Preoperative diagnosis: Symptomatic cholelithiasis Postoperative diagnosis: Same Procedure: Laparoscopic cholecystectomy Surgeon: Berto Phelps MD Machine Grinder: Sharita Matamoros PA-C; Agustin Richey PA-C Anesthesia: General endotracheal Indications for procedure: 29-year-old female patient presenting with complaints of abdominal pain in the epigastrium and right upper quadrant found to have multiple gallstones in the gallbladder on ultrasound. The patient presents today for elective laparoscopic cholecystectomy Operative findings: Dense adhesions to the gallbladder from the surrounding stomach and duodenum consistent with prior episodes of cholecystitis. Specimen: gallbladder Estimated blood loss: 2 mL Complications: None Procedure details: Patient was brought to the OR and placed in a supine position. After administering general anesthesia the patient's abdomen was prepped with ChloraPrep and draped in a sterile fashion. A surgical time-out was called the consent confirmed. Patient received preoperative antibiotics and Venodyne boots were in place. Local anesthesia consisting of 0.5% Sensorcaine without epinephrine was infiltrated in a periumbilical region. A 5 mm incision was made above the umbilicus in a transverse fashion. The Veress needle was then inserted while elevating abdominal cavity with towel clips. After positive drop test the abdomen was insufflated to a pressure of 15 mm of mercury. The Veress needle was then removed and a 5 mm trocar inserted. The camera was inserted in the abdomen explored. A 12 mm trocar was then placed in the epigastrium. Two 5 mm trocars placed in the right upper quadrant by the assistant professor of history. The patient was placed in reverse Trendelenburg positioning and rotated to the left. The gallbladder was grasped with the fundus and retracted cephalad by the assistant professor of history. The infundibulum was then grasped and retracted away from the liver bed, also by the assistant professor of history. The Dolphin dissected was then used by the surgeon to dissect the peritoneum off the infundibulum to reveal the junction with the cystic duct. Cystic artery was noted slightly medial and posterior to the cystic duct. After obtaining a critical view the cystic duct was doubly clipped and divided. The cystic artery was then doubly clipped and divided. The gallbladder was then dissected off the liver bed using electrocautery with an L hook. Hemostasis was assured all times using the electrocautery. When the gallbladder is completely dissected off the liver bed was placed in an Endo-Catch bag and brought out through the epigastric incision. The gallbladder was sent to pathology for further examination. The abdomen was then re-examined. The liver bed was irrigated and suctioned dry. No bleeding or bile leak could be identified. CO2 was then evacuated and all trocars removed. Fascia was closed at the epigastric incision using a [id number] 0 Polysorb suture. Skin was closed in all incisions using a subcuticular 4 0 Polysorb suture by both the surgeon and assistant professor of history. Sterile dressings consisting of Steri-Strips, 2 x 2 gauze, and Tegaderm were then applied. The patient tolerated the procedure well. Sponge instrument and needle counts reported as correct. The patient was transferred to PACU in stable condition.
== END 2025-02-11 10:27 | disposition home or self-care (01) ==
PROVIDERS: Nurse Practitioner; PCP Internal Medicine; Visit Provider Surgery
PROC: 0FT44ZZ Resection of Gallbladder, Percutaneous Endoscopic Approach (ICD-10-PCS; CPT 47562; principal; 2025-02-11 07:30)
DX: K80.10 Calculus of gallbladder with chronic cholecystitis without obstruction (principal); K82.8 Other specified diseases of gallbladder; R79.89 Other specified abnormal findings of blood chemistry; R74.8 Abnormal levels of other serum enzymes; I10 Essential (primary) hypertension; E66.01 Morbid (severe) obesity due to excess calories; Z68.41 Body mass index [BMI] 40.0-44.9, adult; Z79.899 Other long term (current) drug therapy
CPT/HCPCS: 47562; 81025; 88304; J0131; J0525; J1100; J1171; J1596; J1790; J1885; J2003; J2250; J2371; J2405; J2704; J3010

== ENCOUNTER → 2025-02-11 05:59 | Outpatient (BNV) | payer OTHER, SELFPAY | PROVIDERS: PCP Internal Medicine; Visit Provider Surgery | DX: K80.00 Calculus of gallbladder with acute cholecystitis without obstruction (principal) | CPT/HCPCS: 47562 ==

== ENCOUNTER 2025-02-24 08:51 | Outpatient (AMB) | payer OTHER, SELFPAY ==
--- NOTE | 2025-02-24 08:53 | A.OFFVIS_ITS ---
Vital Signs 02/24/25 09:03 Weight 225 lb BP 129/76 Blood Pressure Location Rt brachial Position Sitting Pulse 95 Intake Visit Reasons: S/P lap karin Intake Note: Pt presents for post-op follow-up status post lap karin. (02/11/25 ) Pt c/o; no concerns. Reports incisions healing well. No longer taking rx pain meds. Urgent Care Physician Required: No Accompanied by: mother Una Allergies No Known Allergies Allergy (Verified 02/24/25 09:05) HPI HPI S/P lap karin: Details: Doing well, denies significant pain. Only has some pain in the upper abdomen when bending over. Overall it is improving. Doing well with diet states she has slowly introducing new foods, has not found anything that really has not sat right yet. States her bowel movements are slightly less frequent now every other day. Denies nausea or vomiting. Reports her incision sites are healing well, denies fevers or chills at home. Denies any issues with incision sites draining were having redness around them. She does report she lost about 8 lb since surgery. States she has been intending to lose weight, has been dieting prior also exercising. Has not been exercising since the surgery, it has been avoiding heavy lifting. Her job is physical and we will need to be out of work until she can have no restrictions. She had previously planned with her employer that March 11 she can return to work [facility] Medical History Cholelithiasis History of depression Morbid obesity with BMI of 40.0-44.9, adult Essential hypertension Surgical History (Updated 02/24/25 @ 09:55 by Agustin Richey PA-C) History of laparoscopic cholecystectomy (~02/11/25) No pertinent past surgical history Family History Father Substance use disorder Mental health disorder Myocardial infarction, Onset Age: 59 Mother Diabetes mellitus Rheumatoid arthritis Mental health disorder Sister Mental health disorder Maternal Grandmother No problems noted. Social History Household Members: Friend(s) Housing: House Alcohol intake: current Alcohol intake frequency: a few times a month Comment: correct count Patient Tobacco Use Status: Never used Tobacco e-Cigarette/Vaping Use: Never Used Advance Directives Date on File: 05/19/24 service: No Current occupational status: employed Cognitive needs: No Hearing needs: No Vision needs: No Review of Systems Const All systems reviewed & are unremarkable except as noted in HPI and below Physical Exam Vital Signs: Last Vital Signs Pulse 95 02/24/25 09:03 BP 129/76 02/24/25 09:03 Const General: comfortable and no acute distress Orientation/consciousness: patient oriented x3 Resp Effort & Inspection: normal respiratory effort and able to speak in complete sentences GI Other: Well healed incision sites, no surrounding erythema, no palpable fluid collection, nontender Inspection: No distended Palpation (GI): Soft to palpation and nontender Neuro General: patient oriented x3 Assessment & Plan Assessment & Plan (1) History of laparoscopic cholecystectomy: Onset Date: ~02/11/25 Comment: Dr. Lenin HARTMANN FACS Code(s): Z90.49 - Acquired absence of other specified parts of digestive tract Category: Surgical Plan 29-year-old female s/p laparoscopic cholecystectomy with Dr. Phelps on 02/11/2025 returning to the office for routine follow up. Overall things be doing very well, she does experience some mild abdominal discomfort when performed motion such as bending over. Reassured her this is likely musculoskeletal in nature has result of the trocar ports and should improve over the next 1-2 months she has slowly introducing things to her diet this has been going well has not found anything that is upsetting her stomach, bowel movements have been regular. She does note about an 8 lb weight loss since her surgery but this is intentional as she was dieting and exercising prior to surgery and continues to follow her diet now. We can continue to watch this but she does not seem too concerned about it. Otherwise on exam her abdomen is soft and benign. The incision sites appear to be healing well there was no evidence of acute infection. We reviewed the pathology results showing chronic cholecystitis with cholelithiasis. We will continue with activity restrictions until March 11. Patient is okay to slowly resume activity starting March 12 as well as returning back to work. Recommended starting about half of her baseline and progressing back to her baseline level of activity. No longer requiring follow up, can follow up as needed with any concerns in the future she is okay with this plan Coding Level of Care Code Global (22132) Diagnoses History of laparoscopic cholecystectomy Z90.49
[2025-02-24 09:03] VITALS: BP 129/76; PULSE 95
--- OUTSIDE RECORDS SUMMARY | 2025-02-24 09:43 | XMS_ITS ---
Author Organization Unknown ENCOUNTERS Encounter Performer Location Date Diagnosis Diagnosis Status Outpatient [address] [id number] [facility] Inpatient [address] [address] [id number] [facility] Emergency Melecio Vatrenko [address] [address] [id number] [facility] Pre Admit [facility] ED Physician [address] [address] [phone] *Note: Encounters from your own facility or health system may be excluded. Allergies, Adverse Reactions, Alerts Allergen Type Severity Identification Date Medications Name Date Quantity Days Supplied GPI Number
== END 2025-02-24 09:20 | disposition home or self-care (01) ==
LOC: HO.HGS 08:52
PROVIDERS: PCP Internal Medicine
DX: Z90.49 Acquired absence of other specified parts of digestive tract (principal)
CPT/HCPCS: 99024